=== PATIENT | female | born 1990 | race Caucasian/White ===

== ENCOUNTER → 2020-07-17 08:16 | Outpatient (BNVA) | payer OTHER, SELFPAY | PROVIDERS: PCP Internal Medicine; Visit Provider Surgery ==

== ENCOUNTER → 2020-08-29 10:36 | Outpatient (BNVA) | payer OTHER, SELFPAY | PROVIDERS: PCP Internal Medicine; Visit Provider Physician Assistant ==

== ENCOUNTER → 2020-09-01 08:16 | Outpatient (BNVA) | payer OTHER, SELFPAY | PROVIDERS: PCP Internal Medicine; Visit Provider Surgery ==

== ENCOUNTER → 2020-10-03 08:19 | Outpatient (BNVA) | payer OTHER, SELFPAY | PROVIDERS: PCP Internal Medicine; Visit Provider Dietitian, Registered | DX: E66.01 Morbid (severe) obesity due to excess calories (principal); Z68.44 Body mass index [BMI] 60.0-69.9, adult | CPT/HCPCS: 97802 ==

== ENCOUNTER → 2020-11-10 08:11 | Outpatient (BNVA) | payer OTHER, SELFPAY | PROVIDERS: PCP Internal Medicine; Visit Provider Dietitian, Registered | DX: E66.01 Morbid (severe) obesity due to excess calories (principal); Z68.44 Body mass index [BMI] 60.0-69.9, adult | CPT/HCPCS: 97803 ==

== ENCOUNTER → 2020-12-02 09:13 | Outpatient (BNVA) | payer OTHER, SELFPAY | PROVIDERS: PCP Internal Medicine; Referring Provider Internal Medicine; Visit Provider Surgery | DX: E66.01 Morbid (severe) obesity due to excess calories (principal); Z68.45 Body mass index [BMI] 70 or greater, adult | CPT/HCPCS: 99212 ==

== ENCOUNTER 2021-04-19 18:06 | Emergency (ER) | payer OTHER, SELFPAY ==
--- NOTE | ~2021-04-19 | XR_ITS ---
EXAMINATION: XR CHEST CLINICAL INFORMATION: Shortness of breath. COMPARISON: None TECHNIQUE: AP view of the chest was obtained. FINDINGS: No significant abnormality is noted involving the heart, lungs, mediastinum, bony thorax or soft tissues. XR/XR chest 1V IMPRESSION: Unremarkable examination.
[2021-04-19 20:38] VITALS: BP 146/97; PULSE 111; RESP 22; TEMP 36.8; O2SAT 98; BMI 62.3
[2021-04-19 22:31] LABS: COVID-19 Test Negative (Negative)
--- NOTE | 2021-04-19 22:32 | ED.URI ---
HPI - URI/Sore Throat General Chief Complaint: Dyspnea Stated Complaint: diff breathing Time Seen by Provider: 04/19/21 22:29 Source: patient Mode of arrival: ambulatory Limitations: no limitations History of Present Illness HPI Narrative: Patient works as a teacher , coughing for last 3 weeks been tested for COVID negative for last 2 days complaining of pain in the left chest after coughing a lot headache body aches sore throat denies nausea/ vomiting or diarrhea Related Data Home Medications Medication Instructions Recorded Confirmed clonazepam 0.5 mg tablet 0.25 mg PO BID PRN 08/29/20 12/02/20 duloxetine 60 mg capsule,delayed 60 mg PO DAILY 08/29/20 12/02/20 release lisdexamfetamine 50 mg capsule 50 mg PO QAM 08/29/20 12/02/20 ibuprofen 800 mg tablet 800 mg PO TID PRN 12/02/20 12/02/20 lisdexamfetamine 20 mg capsule 20 mg PO QPM cap 12/02/20 12/02/20 Previous Rx's Medication Instructions Recorded albuterol sulfate 90 mcg/actuation 2 puff INHALATION Q4-6H PRN #8.5 g 04/19/21 aerosol inhaler (ProAir HFA) azithromycin 250 mg tablet 250 mg PO DAILY 4 Days #4 tab 04/19/21 (Zithromax Z-Gwyn) benzonatate 200 mg capsule 200 mg PO TID PRN #30 cap 04/19/21 ibuprofen 600 mg tablet 600 mg PO Q6H PRN #20 tab 04/19/21 prednisone 20 mg tablet 40 mg PO DAILY #10 tab 04/19/21 Allergies Allergy/AdvReac Type Severity Reaction Status Date / Time ceftriaxone [From Rocephin] Allergy Severe Anaphylaxis Verified 04/19/21 20:38 tramadol Allergy Severe Anaphylaxis Verified 04/19/21 20:38 Review of Systems Review of Systems: Yes all other systems are reviewed and are negative PMFSH Past Medical History Medical History ADHD Insomnia Morbid obesity Nephrolithiasis PCOS (polycystic ovarian syndrome) PTSD (post-traumatic stress disorder) Surgical History History of ankle surgery History of tonsillectomy and adenoidectomy Hx of cholecystectomy Hx of wisdom tooth extraction Status post placement of bone anchored hearing aid (BAHA) Family History Family History Mother Hypothyroidism Back pain Father No problems noted. Sister No problems noted. Sister No problems noted. Sister No problems noted. Brother No problems noted. Social History Social History Alcohol intake: former Patient Tobacco Use Status: Never used Tobacco Advance Directives: No Patient : No Physical Exam Vital Signs: Vital Signs: Last Vital Signs Temp 98.2 F 04/19/21 20:38 Pulse 111 H 04/19/21 23:00 Resp 22 H 04/19/21 20:38 BP 146/97 H 04/19/21 20:38 Pulse Ox 98 04/19/21 20:38 Body Mass Index 62.3 Appearance: Alert. Oriented X3. No acute distress. Eyes: No pallor or icterus ENT: Pharynx normal. Oral Mucosa moist Neck: Normal inspection. Neck supple. CVS: Normal heart rate and rhythm. Pulses normal. Respiratory: No respiratory distress. Equal air entry bilateral, Abdomen: Soft and nontender. Bowel sounds are present, no mass palpable, Skin: Skin warm and dry. Normal skin color. Normal skin turgor. Extremities: No lower extremity edema. No calf tenderness Neuro: Oriented X 3 MDM - URI/Sore Throat Lab Data Attestation: I reviewed the patient's lab results. Labs: Lab Results 04/19/21 Range/Units 22:08 COVID-19 (TRISTA) Negative (Negative) COVID-19 Clin Com See Note Discharge Plan Discharge Clinical Impression: Acute bronchitis Patient Disposition: Home, Self-Care Instructions: Acute Bronchitis (ED) Additional Instructions: Take medication as advised your chest x-ray and COVID test is negative Prescriptions: New prednisone 20 mg tablet 40 mg PO DAILY Qty: 10 RF: 0 albuterol sulfate [ProAir HFA] 90 mcg/actuation HFA aerosol inhaler 2 puff inhalation Q4-6H PRN (Reason: shortness of breath or wheezing) Qty: 8.5 RF: 0 azithromycin [Zithromax Z-Gwyn] 250 mg tablet 250 mg PO DAILY 4 Days Qty: 4 RF: 0 benzonatate 200 mg capsule 200 mg PO TID PRN (Reason: cough) Qty: 30 RF: 0 ibuprofen 600 mg tablet 600 mg PO Q6H PRN (Reason: pain) Qty: 20 RF: 0 No Action Vyvanse 50 mg capsule 50 mg PO QAM RF: 0 duloxetine 60 mg capsule,delayed release(DR/EC) 60 mg PO DAILY RF: 0 clonazepam 0.5 mg tablet 0.25 mg PO BID PRNRF: 0 ibuprofen 800 mg tablet 800 mg PO TID PRNRF: 0 lisdexamfetamine 20 mg capsule 20 mg PO QPM RF: 0 Stand Alone Forms: Work/School Release Interventions: ED Discharge Assessment Last Done: 04/19/21 23:38 Discharge Date/Time: 04/19/21 23:39
[2021-04-19] MEDS: Azithromycin 500 MG TABLET PO (22:44)
[2021-04-19] MEDS: Benzonatate 100 MG CAPSULE 200 MG PO (22:44)
[2021-04-19] MEDS: predniSONE 20 MG TABLET 40 MG PO (22:44)
[2021-04-19] MEDS: Albuterol Sulfate 90 MCG 8 GM INHALER 4 PUFF INHALE (22:57)
[2021-04-19 23:00] VITALS: PULSE 111; O2SAT 98
== END 2021-04-19 23:39 | disposition home or self-care (01) ==
PROVIDERS: Emergency Provider Internal Medicine; PCP Internal Medicine
DX: J20.9 Acute bronchitis, unspecified (principal); Z20.822 Contact with and (suspected) exposure to COVID-19; R51.9 Headache, unspecified; M79.10 Myalgia, unspecified site
CPT/HCPCS: 36415; 71045; 87635; 94640; 94664; 99283; 99284

== ENCOUNTER 2021-07-09 23:55 | Emergency (ER) | payer OTHER, SELFPAY ==
--- NOTE | ~2021-07-09 | CT_ITS ---
EXAMINATION: CT ABDOMEN AND PELVIS WITHOUT CONTRAST CLINICAL INFORMATION: Left flank pain COMPARISON: None TECHNIQUE: Multidetector volumetric imaging was performed from the superior aspect of the liver through the pubic symphysis. Sagittal and coronal reformatted images were obtained on the technologist's workstation. This CT examination was performed using dose optimization techniques as appropriate, variously including the following: *Automated exposure control *Adjustment of mA and/or kV according to patient size (this includes techniques or standardized protocols for targeted exams where dose is matched to indication/reason for exam; i.e. extremities or head) *Use of iterative reconstruction technique DLP: 1679 mGy-cm FINDINGS: LUNG BASES: The visualized lung bases are unremarkable. LIVER, GALLBLADDER, AND BILIARY TREE: The liver is normal in size, shape, and attenuation. No focal hepatic lesion or biliary ductal dilatation is present. Cholecystectomy. PANCREAS: Unremarkable. SPLEEN: Unremarkable. ADRENAL GLANDS: Unremarkable. KIDNEYS AND URETERS: There are 2 small calculi in the interpolar region of the left kidney each measuring approximately 2 mm. No hydronephrosis or perinephric abnormality. Ureters normal in course and caliber. Questionable punctate calculus within the distal left ureter at the UVJ. BLADDER: There is a punctate calculus within the bladder, just lateral to the left ureterovesical junction, possibly recently passed stone. GASTROINTESTINAL TRACT: The small and large bowel are unremarkable. The appendix is unremarkable. ABDOMINAL WALL: No significant hernia is appreciated. LYMPH NODES: Normal. VASCULAR: Unremarkable. PELVIC VISCERA: Uterus and adnexa unremarkable. OSSEOUS STRUCTURES: Unremarkable. CT/CT abdomen pelvis wo con IMPRESSION: * Punctate calculus within the left lateral bladder, possibly recently passed stone. * Questionable punctate calcification within the distal left ureter at the ureterovesical junction, versus quantum mottle artifact. * There are 2 small nonobstructive calculi within the left kidney. * No hydronephrosis.
[2021-07-10 00:37] VITALS: BP 138/112; PULSE 120; RESP 20; TEMP 36.4; O2SAT 99; BMI 66.1
[2021-07-10] MEDS: Ketorolac Tromethamine 15 MG/ML VIAL IM (01:19)
[2021-07-10] MEDS: Acetaminophen 325 MG TABLET 975 MG PO (01:19)
[2021-07-10] MEDS: Ondansetron ODT 4 MG TAB.RAPDIS TRANSLINGU (01:20)
[2021-07-10 01:54] VITALS: BP 130/76; PULSE 108; RESP 18; TEMP 36.4; O2SAT 99
--- NOTE | 2021-07-10 02:11 | ED_ITS ---
HPI - Female Genitourinary General Chief complaint: Urogenital-Female Stated complaint: nausea, kidney stones? Time Seen by Provider: 07/10/21 01:05 Source: patient Mode of arrival: ambulatory History of Present Illness HPI Narrative: 31-year-old female with history of renal colic presents with left flank pain radiating into the anterior aspect of the left abdomen and reports painful urination with noted blood tinge to it. Patient also reports associated nausea but no vomiting and denies any fever, chills. Related Data Home Medications Medication Instructions Recorded Confirmed clonazepam 0.5 mg tablet 0.25 mg PO BID PRN 08/29/20 12/02/20 duloxetine 60 mg capsule,delayed 60 mg PO DAILY 08/29/20 12/02/20 release lisdexamfetamine 50 mg capsule 50 mg PO QAM 08/29/20 12/02/20 ibuprofen 800 mg tablet 800 mg PO TID PRN 12/02/20 12/02/20 lisdexamfetamine 20 mg capsule 20 mg PO QPM cap 12/02/20 12/02/20 Previous Rx's Medication Instructions Recorded albuterol sulfate 90 mcg/actuation 2 puff INHALATION Q4-6H PRN #8.5 g 04/19/21 aerosol inhaler (ProAir HFA) azithromycin 250 mg tablet 250 mg PO DAILY 4 Days #4 tab 04/19/21 (Zithromax Z-Gwyn) benzonatate 200 mg capsule 200 mg PO TID PRN #30 cap 04/19/21 ibuprofen 600 mg tablet 600 mg PO Q6H PRN #20 tab 04/19/21 prednisone 20 mg tablet 40 mg PO DAILY #10 tab 04/19/21 ketorolac 10 mg tablet 10 mg PO Q6H PRN 5 Days #20 tab 07/10/21 ondansetron 4 mg disintegrating 4 mg PO Q6H PRN #10 tab 07/10/21 tablet tamsulosin 0.4 mg capsule (Flomax) 0.4 mg PO BEDTIME #4 cap 07/10/21 Allergies Allergy/AdvReac Type Severity Reaction Status Date / Time ceftriaxone [From Rocephin] Allergy Severe Anaphylaxis Verified 04/19/21 20:38 tramadol Allergy Severe Anaphylaxis Verified 04/19/21 20:38 Review of Systems Review of Systems: Pertinent positives and negatives as stated in HPI 10 point review of systems is otherwise negative. [facility] Past Medical History Source: nursing notes reviewed Medical History ADHD Insomnia Morbid obesity Nephrolithiasis PCOS (polycystic ovarian syndrome) PTSD (post-traumatic stress disorder) Surgical History History of ankle surgery History of tonsillectomy and adenoidectomy Hx of cholecystectomy Hx of wisdom tooth extraction Status post placement of bone anchored hearing aid (BAHA) Family History Family History Mother Hypothyroidism Back pain Father No problems noted. Sister No problems noted. Sister No problems noted. Sister No problems noted. Brother No problems noted. Social History Social History Alcohol intake: former Patient Tobacco Use Status: Never used Tobacco Advance Directives: No Advance Directives Information Provided: Yes Patient : No Physical Exam Vital Signs: Vital Signs: Last Vital Signs Temp 98.5 F 07/10/21 04:00 Pulse 65 07/10/21 04:00 Resp 18 07/10/21 05:28 BP 130/78 07/10/21 04:00 Pulse Ox 99 07/10/21 01:54 BMI result Body Mass Index 66.1 VITAL SIGNS: Reviewed. GENERAL: Well developed, well nourished, in no acute distress. HEAD: Normocephalic/atraumatic EYES: PERRLA, EOMI OROPHARYNX: no oral lesions noted, posterior pharynx clear LUNGS: Normal breath sounds. No adventitious sounds or accessory muscle use. SpO2<99> CARDIOVASCULAR: Regular rate and rhythm without noted murmurs ABDOMEN: Morbid obesity, exam limited by body habitus, Soft, non-tender, non- distended with bowel sounds. SKIN: Inspection of the skin reveals no rashes NEUROLOGIC: Alert and oriented x 4. Strength and sensation to light touch were grossly intact x 4. Course Course Course Narrative: 31-year-old female with history and clinical presentation consistent with renal colic and doubt gastritis/pancreatitis/diverticulitis. Patient provided with IV hydration, pain medication and antiemetics. Review of urinalysis and CT scan consistent with renal colic. On re-evaluation patient reports improvement in her pain and is noted to tolerate oral intake and is otherwise discharged with a referral to see Urology. MDM - Female Genitourinary Lab Data Labs: Lab Results 07/10/21 07/10/21 Range/Units 02:07 02:07 Urine Color YELLOW Urine Appearance TURBID Urine pH 6.0 (5.0-8.0) Ur Specific [employer] >= 1.030 H (1.005-1.025) Urine Protein TRACE (NEG-TRACE) MG/DL Urine Glucose (UA) NEG (NEG) MG/DL Urine Ketones NEG (NEG) MG/DL Urine Blood 3+ H (NEG) Urine Nitrite NEG (NEG) Ur Leukocyte Esterase NEG (NEG) Urine RBC 50-75 H (0) /HPF Urine WBC 0 (0-4) /HPF Ur Squamous Epith Cells TRACE /LPF Urine Bacteria 1+ /LPF Urine Mucus 1+ /LPF Urine Test NEGATIVE (NEGATIVE) Discharge Plan Discharge Clinical Impression: Morbid obesity due to excess calories, Renal colic, Ureterolithiasis Patient Disposition: Home, Self-Care Instructions: Renal Colic (ED), Ureteral Stones (ED) Additional Instructions: 1. Resume home medications as prescribed. 2. Increase fluid hydration, especially with water. You have been prescribed antinausea medication that you should take as directed. 3. Recommend [id number] Tylenol/ibuprofen as needed for pain control. 4. Please follow-up with Urology, a referral has been provided to you below. Return to the ER for any worsening symptoms. Prescriptions: New ondansetron 4 mg tablet,disintegrating 4 mg PO Q6H PRN (Reason: nausea and vomiting) Qty: 10 0RF tamsulosin [Flomax] 0.4 mg capsule 0.4 mg PO BEDTIME Qty: 4 0RF ketorolac 10 mg tablet 10 mg PO Q6H PRN (Reason: pain) 5 Days Qty: 20 0RF No Action prednisone 20 mg tablet 40 mg PO DAILY Qty: 10 0RF albuterol sulfate [ProAir HFA] 90 mcg/actuation HFA aerosol inhaler 2 puff inhalation Q4-6H PRN (Reason: shortness of breath or wheezing) Qty: 8.5 0RF azithromycin [Zithromax Z-Gwyn] 250 mg tablet 250 mg PO DAILY 4 Days Qty: 4 0RF Rx Instructions: start on day 2 of therapy benzonatate 200 mg capsule 200 mg PO TID PRN (Reason: cough) Qty: 30 0RF ibuprofen 600 mg tablet 600 mg PO Q6H PRN (Reason: pain) Qty: 20 0RF Vyvanse 50 mg capsule 50 mg PO QAM 0RF duloxetine 60 mg capsule,delayed release(DR/EC) 60 mg PO DAILY 0RF clonazepam 0.5 mg tablet 0.25 mg PO BID PRN0RF ibuprofen 800 mg tablet 800 mg PO TID PRN0RF lisdexamfetamine 20 mg capsule 20 mg PO QPM 0RF Referrals: Stephen Rogers MD [Physician] - 2 days Stand Alone Forms: Work/School Release
[2021-07-10 02:14] LABS: Appearance Urine TURBID; Color Urine YELLOW; Glucose Urine UA NEG (NEG); Leukocyte Esterase Urine NEG (NEG); Nitrite Urine NEG (NEG); Specific Gravity - Urine >= 1.030 (1.005-1.025); UACC Culture Trigger NO; Urine Blood 3+ (NEG); Urine Ketones NEG (NEG); Urine Protein TRACE MG/DL (NEG-TRACE)
[2021-07-10 02:15] LABS: UPreg QC Valid YES; Urine Pregnancy NEGATIVE (NEGATIVE)
[2021-07-10 02:24] LABS: Bacteria Urine 1+ /LPF; Mucus Urine 1+ /LPF; RBC Urine 50-75 /HPF (0); Squamous Epithelial Cell Urine TRACE /LPF; WBC Urine 0 /HPF (0-4)
[2021-07-10 03:11] VITALS: RESP 16
[2021-07-10] MEDS: fentaNYL citrate/PF 100 MCG/2 ML VIAL 25 MCG IVPUSH ×3 (03:11→05:28)
[2021-07-10] MEDS: 0.9 % Sodium Chloride 1,000 ML 999 ML IV (03:13)
[2021-07-10 04:00] VITALS: BP 130/78; PULSE 65; RESP 18; TEMP 36.9
[2021-07-10] MEDS: ondansetron HCL 4 MG/2 ML VIAL IVPUSH (04:08)
[2021-07-10 04:10] VITALS: RESP 20
--- NOTE | 2021-07-10 04:57 | PC.NURSE ---
PT required multiple attempts for IV access. One point of access, that was initially viable, had blown in the process or administering IV pain medication. PT did not receive the intended effects of the meds and thus required more pain meds after IV access had once again been established.
[2021-07-10 05:28] VITALS: RESP 18
[2021-07-10] MEDS: Ketorolac Tromethamine 30 MG/ML VIAL 15 MG IVPUSH (05:29)
== END 2021-07-10 06:10 | disposition home or self-care (01) ==
PROVIDERS: Emergency Provider Student in an Organized Health Care Education/Training Program
DX: N23 Unspecified renal colic (principal); N20.2 Calculus of kidney with calculus of ureter; E66.01 Morbid (severe) obesity due to excess calories; Z68.45 Body mass index [BMI] 70 or greater, adult
CPT/HCPCS: 74176; 81001; 81025; 96361; 96372; 96374; 96375; 96376; 99284; J1885; J2405; J3010

== ENCOUNTER 2021-08-22 21:22 | Emergency (ER) | payer OTHER, SELFPAY ==
--- NOTE | ~2021-08-22 | CT_ITS ---
EXAMINATION: CT ANGIOGRAM OF THE CHEST WITH AND WITHOUT CONTRAST (CT PULMONARY ANGIOGRAM FOR PE) CLINICAL INFORMATION: Reason for Exam Shortness of breath, tachycardia, COVID positive COMPARISON: None TECHNIQUE: Prior to contrast administration, noncontrast localization images were obtained. Subsequently, multidetector volumetric imaging was performed from the thoracic inlet to below the diaphragms following the administration of 100 mL Omnipaque 350 intravenous contrast. No contrast reaction reported Sagittal, coronal, and MIP oblique sagittal reformatted images were obtained on the CT workstation, uploaded to PACS, and reviewed. This CT examination was performed using dose optimization techniques as appropriate, variously including the following: *Automated exposure control *Adjustment of mA and/or kV according to patient size (this includes techniques or standardized protocols for targeted exams where dose is matched to indication/reason for exam; i.e. extremities or head) *Use of iterative reconstruction technique Total exam dose-length product 526 mGy-cm FINDINGS: QUALITY OF STUDY/CONTRAST BOLUS: Satisfactory. PULMONARY ARTERIES: No central or segmental pulmonary emboli. THORACIC AORTA: No aneurysm or dissection. LUNG: No focal consolidation, nodules or masses. PLEURA: No pleural effusion or pneumothorax. MEDIASTINUM: Normal heart size. No pericardial effusion. No hilar or mediastinal lymphadenopathy. No evidence of septal bowing or right heart strain. CHEST WALL/AXILLA: No axillary or internal mammary lymphadenopathy. OSSEOUS STRUCTURES: No acute or suspicious osseous abnormality. UPPER ABDOMEN: Cholecystectomy CT/CT angio chest PE protocol IMPRESSION: No pulmonary embolism. No acute pulmonary parenchymal abnormalities. VTE: negative
--- NOTE | ~2021-08-22 | XR_ITS ---
EXAMINATION: XR CHEST CLINICAL INFORMATION: Shortness of breath COMPARISON: 04/19/2021 TECHNIQUE: Frontal view of the chest was obtained. FINDINGS: Limited from body habitus and technique. No obvious finding. No failure or infiltrate is seen. There is no effusion. The cardiac silhouette is within normal limits. XR/XR chest 1V IMPRESSION: No acute finding.
[2021-08-22 21:31] VITALS: BP 107/69; PULSE 110; RESP 22; TEMP 36.4; O2SAT 98; BMI 66.1
--- NOTE | 2021-08-22 21:48 | ECG_ITS ---
Test Reason : CHEST PAIN Blood Pressure : / mmHG Vent. Rate : 098 BPM Atrial Rate : 098 BPM P-R Int : 128 ms QRS Dur : 084 ms QT Int : 354 ms P-R-T Axes : 032 048 -05 degrees QTc Int : 451 ms Normal sinus rhythm Normal ECG No previous ECGs available Referred By: Generic ED Physician Electronically Signed By:ROBERTO PRIEST
--- NOTE | 2021-08-22 22:03 | ED.CHESTPAIN ---
HPI - Chest Pain General Chief Complaint: Chest Pain Stated Complaint: COVID + Having severe chest pain/sob Source: patient Mode of arrival: ambulatory Limitations: no limitations History of Present Illness HPI narrative: 31-year-old female presents with positive COVID test on 08/11/2021, has worsening shortness of breath, cough, and pain on inspiration. States the pain starts substernally and radiates to the left side of her chest. She has increased shortness of breath, shortness of breath on inspiration, and feels palpitations. MD complaint: chest pain Pertinent past history: other (Positive COVID) Onset (ago): day(s) Timing of current episode: constant Prior episodes: No Pain location: substernal and left chest Pain radiation: none Severity: moderate Quality: tightness Relieving factors: nothing Exacerbating factors: exertion, movement and other (Coughing) Context: recent illness Associated symptoms: cough Treatment prior to arrival: none Risk Factors Coronary artery disease risk factors: none Thoracic aortic dissection risk factors: none Related Data On Oral Contraceptives: No Home Medications Medication Instructions Recorded Confirmed clonazepam 0.5 mg tablet 0.25 mg PO BID PRN 08/29/20 12/02/20 duloxetine 60 mg capsule,delayed 60 mg PO DAILY 08/29/20 12/02/20 release lisdexamfetamine 50 mg capsule 50 mg PO QAM 08/29/20 12/02/20 ibuprofen 800 mg tablet 800 mg PO TID PRN 12/02/20 12/02/20 lisdexamfetamine 20 mg capsule 20 mg PO QPM cap 12/02/20 12/02/20 Previous Rx's Medication Instructions Recorded albuterol sulfate 90 mcg/actuation 2 puff INHALATION Q4-6H PRN #8.5 g 04/19/21 aerosol inhaler (ProAir HFA) azithromycin 250 mg tablet 250 mg PO DAILY 4 Days #4 tab 04/19/21 (Zithromax Z-Gwyn) benzonatate 200 mg capsule 200 mg PO TID PRN #30 cap 04/19/21 ibuprofen 600 mg tablet 600 mg PO Q6H PRN #20 tab 04/19/21 prednisone 20 mg tablet 40 mg PO DAILY #10 tab 04/19/21 ketorolac 10 mg tablet 10 mg PO Q6H PRN 5 Days #20 tab 07/10/21 ondansetron 4 mg disintegrating 4 mg PO Q6H PRN #10 tab 07/10/21 tablet tamsulosin 0.4 mg capsule (Flomax) 0.4 mg PO BEDTIME #4 cap 07/10/21 codeine 10 mg-guaifenesin 100 mg/5 10 ml PO Q4-6H PRN #120 ml 08/23/21 mL oral liquid (Guaiatussin AC) prednisone 20 mg tablet 60 mg PO DAILY 5 Days #15 tab 08/23/21 Allergies Allergy/AdvReac Type Severity Reaction Status Date / Time ceftriaxone [From Rocephin] Allergy Severe Anaphylaxis Verified 04/19/21 20:38 tramadol Allergy Severe Anaphylaxis Verified 04/19/21 20:38 Review of Systems Review of Systems: Constitutional: No Fever, no Chills, positive fatigue, positive Malaise ENT/Mouth: positive sore throat, positive runny nose Eyes: No Discharge Cardiovascular: Positive Chest Pain, PA's SOB Respiratory: Positive Cough, No Sputum, No Wheezing, No Smoke Exposure, No Dyspnea Gastrointestinal: No Nausea, No Vomiting, No Diarrhea Genitourinary: no irregular bleeding, No Dysuria, No Urinary Frequency, No Hematuria, No Urinary Incontinence, No Urgency, No Flank Pain, Musculoskeletal: positive Myalgia Skin: No rash Neuro: Positive Headache Yes all other systems are reviewed and are negative [facility] Past Medical History Attestation statement: The following information was validated with the patient. Source: old records reviewed Medical History ADHD Insomnia Morbid obesity Nephrolithiasis PCOS (polycystic ovarian syndrome) PTSD (post-traumatic stress disorder) Surgical History History of ankle surgery History of tonsillectomy and adenoidectomy Hx of cholecystectomy Hx of wisdom tooth extraction Status post placement of bone anchored hearing aid (BAHA) Family History Family History Mother Hypothyroidism Back pain Father No problems noted. Sister No problems noted. Sister No problems noted. Sister No problems noted. Brother No problems noted. Social History Social History Alcohol intake: former Patient Tobacco Use Status: Never used Tobacco Advance Directives: No Advance Directives Information Provided: No Patient : No Physical Exam Vital Signs: Vital Signs: Last Vital Signs Temp 97.5 F 08/22/21 21:31 Pulse 140 H 08/23/21 01:58 Resp 18 08/23/21 00:49 BP 122/96 H 08/23/21 00:46 Pulse Ox 88 L 08/23/21 01:58 BMI result Body Mass Index 66.1 Appearance: Alert. Oriented X3. Moderate distress. Eyes: Pupils equal, round and reactive to light. Sclera nonicteric. ENT: Pharynx normal. Neck: Normal inspection. Neck supple. CVS: Tachycardic heart rate and rhythm. Pulses normal. Chest wall tenderness to palpation greater on the left than the right. Respiratory: Mild respiratory distress. Expiratory wheezing throughout. Abdomen: Soft and nontender. Obese. Skin: Skin warm and dry. Normal skin color. Normal skin turgor. Extremities: No lower extremity edema. Moves all extremities against resistance. Neuro: No motor deficit. No sensory deficit. Gait well-balanced well coordinated. Cranial nerves 2-12 intact. Course Course Course Narrative: 31-year-old female COVID positive on 08/11/2021 presents with worsening shortness of breath, chest pain, pain on inspiration, and tachycardia. Will order labs, CT a to rule out PE. Patient is tachycardic with shortness of breath, pain on inspiration. Wells PE score 4.5. 00:29 lab values consistent with COVID-19. Elevated CRP, and LDH. Lactic acid 1.1 02:06 CTA is negative for PE or pneumonia. Will discharge home with supportive measures. Repeat pulse oximetry on exertion is 92% on room air. Patient does not meet criteria for admission. I did discuss this case with the hospitalist who agrees with this plan to discharge to home. MDM - Chest Pain Differential Diagnosis Differential diagnosis: Likely fracture of rib, atypical chest pain, st elevation myocardial infarction, costochondritis and chest pain Differential diagnosis: PE, pneumonia Medical Records Data Attestation: I reviewed the patient's medical records. Lab Data Attestation: I reviewed the patient's lab results. Result diagrams: 08/22/21 23:06 08/22/21 23:06 Labs: Lab Results 04/02/22 04/02/22 04/02/22 Range/Units 23:06 23:06 23:06 WBC 12.4 H (4.8-10.8) X10*3/uL RBC 5.01 (4.20-5.50) X10*6/uL Hgb 13.6 (12.0-16.0) g/dl Hct 41.8 (37.0-47.0) % MCV 83.4 (80.0-98.0) fL MCH 27.1 (27.0-33.0) pg MCHC 32.5 (31.0-35.0) g/dl RDW 13.1 (11.0-16.0) % Plt Count 347 (160-400) X10*3/uL MPV 9.1 L (9.4-12.3) fL Immature Gran % (Auto) 0.6 H (0.0-0.4) % Neut % (Auto) 56.7 (45-73) % Lymph % (Auto) 34.3 (20-40) % [place] % (Auto) 5.7 (2-11) % Eos % (Auto) 2.1 (0-4) % Baso % (Auto) 0.6 (0-2) % Lymph # (Auto) 4.2 (1.2-4.9) X10*3/uL [place] # (Auto) 0.7 (0.1-1.2) X10*3/uL Eos # (Auto) 0.3 (0.0-0.4) X10*3/uL Baso # (Auto) 0.1 (0.0-0.2) X10*3/uL Abs Immat Gran (auto) 0.08 H (0.00-0.03) X10*3/uL Absolute Neuts (auto) 7.0 (2.0-8.3) x10*3/uL Absolute Nucleated RBC 0.000 (0.0-0.012) X10*3/uL Nucleated RBC % (auto) 0.0 (0.0-0.2) /100WBC Sodium 140 (135-145) mmol/L Potassium 4.4 (3.3-5.1) mmol/L Chloride 106 (96-108) mmol/L Carbon Dioxide 27 (22-29) mmol/L Anion Gap 11 L (12-20) BUN 10 (9-16) mg/dL Creatinine 0.77 (0.5-1.4) mg/dL Estim Creat Clear Calc 155.5 Estimated GFR > 60 Random Glucose 93 (60-115) mg/dL Lactic Acid (0.5-2.0) mmol/L Calcium 9.2 (8.4-10.2) mg/dL Magnesium (1.6-2.6) mg/dL Ferritin (10-122) ng/mL Lactate Dehydrogenase (122-220) U/L Troponin I High Sens < 3.5 (<3.5-17.0) ng/L C-Reactive Protein (< or = 0.50) mg/dL B-Natriuretic Peptide 12 (<100) pg/mL Procalcitonin ng/mL 08/22/21 08/22/21 08/22/21 Range/Units 23:06 23:06 23:07 WBC (4.8-10.8) X10*3/uL RBC (4.20-5.50) X10*6/uL Hgb (12.0-16.0) g/dl Hct (37.0-47.0) % MCV (80.0-98.0) fL MCH (27.0-33.0) pg MCHC (31.0-35.0) g/dl RDW (11.0-16.0) % Plt Count (160-400) X10*3/uL MPV (9.4-12.3) fL Immature Gran % (Auto) (0.0-0.4) % Neut % (Auto) (45-73) % Lymph % (Auto) (20-40) % [place] % (Auto) (2-11) % Eos % (Auto) (0-4) % Baso % (Auto) (0-2) % Lymph # (Auto) (1.2-4.9) X10*3/uL [place] # (Auto) (0.1-1.2) X10*3/uL Eos # (Auto) (0.0-0.4) X10*3/uL Baso # (Auto) (0.0-0.2) X10*3/uL Abs Immat Gran (auto) (0.00-0.03) X10*3/uL Absolute Neuts (auto) (2.0-8.3) x10*3/uL Absolute Nucleated RBC (0.0-0.012) X10*3/uL Nucleated RBC % (auto) (0.0-0.2) /100WBC Sodium (135-145) mmol/L Potassium (3.3-5.1) mmol/L Chloride (96-108) mmol/L Carbon Dioxide (22-29) mmol/L Anion Gap (12-20) BUN (9-16) mg/dL Creatinine (0.5-1.4) mg/dL Estim Creat Clear Calc Estimated GFR Random Glucose (60-115) mg/dL Lactic Acid 1.1 (0.5-2.0) mmol/L Calcium (8.4-10.2) mg/dL Magnesium 2.1 (1.6-2.6) mg/dL Ferritin 113 (10-122) ng/mL Lactate Dehydrogenase 303 H (122-220) U/L Troponin I High Sens (<3.5-17.0) ng/L C-Reactive Protein 2.33 H (< or = 0.50) mg/dL B-Natriuretic Peptide (<100) pg/mL Procalcitonin 0.03 ng/mL Imaging Data Chest x-ray: Attestation: I personally reviewed and interpreted this imaging study as follows: Radiologist's impression: EXAMINATION: XR CHEST CLINICAL INFORMATION: Shortness of breath COMPARISON: 04/19/2021 TECHNIQUE: Frontal view of the chest was obtained. FINDINGS: Limited from body habitus and technique. No obvious finding. No failure or infiltrate is seen. There is no effusion. The cardiac silhouette is within normal limits. XR/XR chest 1V IMPRESSION: No acute finding.? CTA PE: Attestation: I personally reviewed and interpreted this imaging study as follows: Radiologist's impression: EXAMINATION: CT ANGIOGRAM OF THE CHEST WITH AND WITHOUT CONTRAST (CT PULMONARY ANGIOGRAM FOR PE) CLINICAL INFORMATION: Reason for Exam Shortness of breath, tachycardia, COVID positive COMPARISON: None? TECHNIQUE: Prior to contrast administration, noncontrast localization images were obtained. ? Subsequently, multidetector volumetric imaging was performed from the thoracic inlet to below the diaphragms following the administration of 100 mL Omnipaque 350 intravenous contrast. No contrast reaction reported Sagittal, coronal, and MIP oblique sagittal reformatted images were obtained on the CT workstation, uploaded to PACS, and reviewed. This CT examination was performed using dose optimization techniques as appropriate, variously including the following: *Automated exposure control *Adjustment of mA and/or kV according to patient size (this includes techniques or standardized protocols for targeted exams where dose is matched to indication/reason for exam; i.e. extremities or head) *Use of iterative reconstruction technique Total exam dose-length product 526 mGy-cm FINDINGS: QUALITY OF STUDY/CONTRAST BOLUS: Satisfactory. PULMONARY ARTERIES: No central or segmental pulmonary emboli.? THORACIC AORTA: No aneurysm or dissection. LUNG: No focal consolidation, nodules or masses. PLEURA: No pleural effusion or pneumothorax. MEDIASTINUM: Normal heart size.? No pericardial effusion.? No hilar or mediastinal lymphadenopathy.? No evidence of septal bowing or right heart strain. CHEST WALL/AXILLA: No axillary or internal mammary lymphadenopathy. OSSEOUS STRUCTURES: No acute or suspicious osseous abnormality.? UPPER ABDOMEN: Cholecystectomy CT/CT angio chest PE protocol IMPRESSION: No pulmonary embolism. No acute pulmonary parenchymal abnormalities. ? VTE: negative ECG Data ECG #1: Attestation: I personally reviewed and interpreted this ECG as follows: ECG interpretation date: 08/22/21 ECG interpretation time: 23:09 Prior ECG tracings: not available for review Interpretation: Vent. rate 98 BPM NJ interval 128 ms QRS duration 84 ms QT/QTc 354/451 ms P-R-T axes 32 48 -5 Normal sinus rhythm Normal ECG No previous ECGs available Scores Wells PE Clinical symptoms of DVT: 3 Heart rate > 100 p/min: 1.5 Score: 4.5 2-tier Risk: likely risk (17-53%) Discharge Plan Discharge Clinical Impression: Atypical chest pain, COVID-19 Patient Disposition: Home, Self-Care Instructions: Covid-19 Viral Syndrome and Novel Coronavirus (ED) Hey/Ath, Noncardiac Chest Pain (ED), Chest Wall Pain (ED) Additional Instructions: You were evaluated for symptoms consistent with COVID-19. Please maintain social isolation per State and Federal guidelines. Your CT angio for PE is negative for blood clots in the lungs. Also negative for pneumonia. I prescribed Robitussin AC. This medication is a narcotic and has high risk for addiction and abuse. Do not drive or operate machinery while taking this medication. Please follow the directions for use on the label. Please take prednisone 60 mg daily for the next 5 days. Follow-up with your primary care physician this week. Thank you for choosing this emergency department for evaluation. Please follow-up with primary care physician as needed. Return to the emergency department for any new, concerning, or worsening symptoms. Prescriptions: New prednisone 20 mg tablet 60 mg PO DAILY 5 Days Qty: 15 0RF codeine-guaifenesin [Guaiatussin AC] 10-100 mg/5 mL liquid 10 ml PO Q4-6H PRN (Reason: cough) Qty: 120 0RF No Action ondansetron 4 mg tablet,disintegrating 4 mg PO Q6H PRN (Reason: nausea and vomiting) Qty: 10 0RF tamsulosin [Flomax] 0.4 mg capsule 0.4 mg PO BEDTIME Qty: 4 0RF ketorolac 10 mg tablet 10 mg PO Q6H PRN (Reason: pain) 5 Days Qty: 20 0RF prednisone 20 mg tablet 40 mg PO DAILY Qty: 10 0RF albuterol sulfate [ProAir HFA] 90 mcg/actuation HFA aerosol inhaler 2 puff inhalation Q4-6H PRN (Reason: shortness of breath or wheezing) Qty: 8.5 0RF azithromycin [Zithromax Z-Gwyn] 250 mg tablet 250 mg PO DAILY 4 Days Qty: 4 0RF Rx Instructions: start on day 2 of therapy benzonatate 200 mg capsule 200 mg PO TID PRN (Reason: cough) Qty: 30 0RF ibuprofen 600 mg tablet 600 mg PO Q6H PRN (Reason: pain) Qty: 20 0RF Vyvanse 50 mg capsule 50 mg PO QAM 0RF duloxetine 60 mg capsule,delayed release(DR/EC) 60 mg PO DAILY 0RF clonazepam 0.5 mg tablet 0.25 mg PO BID PRN0RF ibuprofen 800 mg tablet 800 mg PO TID PRN0RF lisdexamfetamine 20 mg capsule 20 mg PO QPM 0RF Stand Alone Forms: Work/School Release
[2021-08-22] MEDS: Albuterol Sulfate 90 MCG 8 GM INHALER 4 PUFF INHALE (22:21)
[2021-08-22 23:14] VITALS: RESP 22
[2021-08-22] MEDS: Morphine Sulfate 4 MG/ML CARTRIDGE IVPUSH (23:14)
[2021-08-22] MEDS: guaiFEN/Codeine SF 200/20/10ML 10 ML LIQUID PO (23:14)
[2021-08-22 23:18] VITALS: BP 116/70; PULSE 108; RESP 22; O2SAT 98
[2021-08-22 23:18] LABS: Basophils Absolute Auto 0.1 X10*3/uL (0.0-0.2); Basophils Percent Auto 0.6 % (0-2); Eosinophils Absolute Auto 0.3 X10*3/uL (0.0-0.4); Eosinophils Percent Auto 2.1 % (0-4); Hematocrit 41.8 % (37.0-47.0); Hemoglobin 13.6 g/dl (12.0-16.0); Imm Gran Abs Auto 0.08 X10*3/uL (0.00-0.03); Imm Gran Pct Auto 0.6 % (0.0-0.4); Lymphocytes Absolute Auto 4.2 X10*3/uL (1.2-4.9); Lymphocytes Percent Auto 34.3 % (20-40); MANUAL DIFF FLAG NO; Mean Corpuscular HGB Conc 32.5 g/dl (31.0-35.0); Mean Corpuscular Hemoglobin 27.1 pg (27.0-33.0); Mean Corpuscular Volume 83.4 fL (80.0-98.0); Mean Platelet Volume 9.1 fL (9.4-12.3); Monocytes Absolute Auto 0.7 X10*3/uL (0.1-1.2); Monocytes Percent Auto 5.7 % (2-11); Neutrophils Percent Auto 56.7 % (45-73); Platelet Count 347 X10*3/uL (160-400); Red Blood Count 5.01 X10*6/uL (4.20-5.50); Red Cell Distribution Width 13.1 % (11.0-16.0); White Blood Count 12.4 X10*3/uL (4.8-10.8)
[2021-08-22 23:27] LABS: Lactic Acid 1.1 mmol/L (0.5-2.0)
[2021-08-22 23:32] LABS: Anion Gap 11 (12-20); Blood Urea Nitrogen 10 mg/dL (9-16); C Reactive Protein 2.33 mg/dL (< or = 0.50); Calcium 9.2 mg/dL (8.4-10.2); Carbon Dioxide 27 mmol/L (22-29); Chloride 106 mmol/L (96-108); Creatinine Clr Calc Pharmacy 155.5; Estimated Glomerular Filt Rate > 60; Glucose Random 93 mg/dL (60-115); Lactate Dehydrogenase 303 U/L (122-220); Magnesium 2.1 mg/dL (1.6-2.6); Potassium 4.4 mmol/L (3.3-5.1); Sodium 140 mmol/L (135-145)
[2021-08-22 23:38] LABS: B Type Natriuretic Peptide 12 pg/mL (<100); Troponin-I High Sensitivity < 3.5 ng/L (<3.5-17.0)
[2021-08-22 23:51] VITALS: BP 146/95; PULSE 108; RESP 20; O2SAT 96
[2021-08-22 23:53] LABS: Ferritin 113 ng/mL (10-122)
[2021-08-23 00:31] LABS: Procalcitonin 0.03 ng/mL
[2021-08-23 00:46] VITALS: BP 122/96
[2021-08-23 00:49] VITALS: RESP 18
[2021-08-23] MEDS: Morphine Sulfate 4 MG/ML CARTRIDGE IVPUSH (00:49)
[2021-08-23] MEDS: Lidocaine HCl Viscous 2 % 15 ML SOLUTION MUCOUS MEM (00:49)
[2021-08-23] MEDS: iohexoL 350 MG/ML 100 ML INFUS..BTL IV (01:16)
--- NOTE | 2021-08-23 01:54 | PC.NURSE ---
pt ambulated in room with nonprod cough. pt demonstarted, moreno, dizziness, holding onto furniture while walking, pt sat dropped to 88% on room air, hr 140, at rest sat improved to 98% on room air hr 108
[2021-08-23 01:58] VITALS: PULSE 140; O2SAT 92
--- NOTE | 2021-08-23 02:35 | PC.NURSE ---
pt sat probe that registered 88% was inaccurate and another probe was used and sat was 92% on room air. vitals adjusted to show this.
[2021-08-23 02:40] VITALS: PULSE 103; O2SAT 98
[2021-08-23 02:54] LABS: Influenza A PCR NEGATIVE (Negative); Influenza B PCR NEGATIVE (Negative); Resp Syncy Virus RNA Qual PCR NEGATIVE (Negative); SARS COV2 PCR INHOUSE POSITIVE (Negative)
== END 2021-08-23 02:47 | disposition home or self-care (01) ==
PROVIDERS: Nurse Practitioner Family; Emergency Provider Emergency Medicine Emergency Medical Services
DX: U07.1 COVID-19 (principal); R07.89 Other chest pain; R06.02 Shortness of breath; R00.0 Tachycardia, unspecified
CPT/HCPCS: 0241U; 36415; 71045; 71275; 80048; 82728; 83605; 83615; 83735; 83880; 84145; 84484; 85025; 86140; 87040; 93005; 96374; 96375; 99284; J2270; Q9967

== ENCOUNTER 2021-10-06 20:47 | Emergency (ER) | payer OTHER, SELFPAY ==
--- NOTE | ~2021-10-06 | XR_ITS ---
EXAMINATION: XR CHEST CLINICAL INFORMATION: Shortness of breath with exertion. COMPARISON: 08/22/2021 chest radiograph. TECHNIQUE: 2 views of the chest were obtained. FINDINGS: No significant abnormality is noted involving the heart, lungs, mediastinum, bony thorax or soft tissues. XR/XR chest 2V IMPRESSION: No acute cardiopulmonary process.
[2021-10-06 22:13] VITALS: BP 151/104; PULSE 90; RESP 18; TEMP 36.6; O2SAT 100; BMI 62.3
[2021-10-06 22:49] LABS: Influenza A Negative (Negative); Influenza B2 Negative (Negative)
[2021-10-06 22:50] LABS: COVID-19 Test Negative (Negative); IDNOW Serial# 16C4AD1C
[2021-10-07 06:15] LABS: Appearance Urine CLEAR; Color Urine YELLOW; Glucose Urine UA NEG (NEG); Leukocyte Esterase Urine NEG (NEG); Nitrite Urine NEG (NEG); Specific Gravity - Urine 1.025 (1.005-1.025); Urine Blood NEG (NEG); Urine Ketones NEG (NEG); Urine Protein NEG (NEG-TRACE)
[2021-10-07 06:24] LABS: UPreg QC Valid YES; Urine Pregnancy NEGATIVE (NEGATIVE)
== END 2021-10-07 07:14 | disposition left against medical advice (07) ==
PROVIDERS: Student in an Organized Health Care Education/Training Program; Emergency Provider Emergency Medicine
DX: R06.02 Shortness of breath (principal); Z20.822 Contact with and (suspected) exposure to COVID-19
CPT/HCPCS: 71046; 81003; 81025; 87502; 87635; 99283

== ENCOUNTER 2022-10-11 04:18 | Inpatient (IN) | payer OTHER, SELFPAY ==
[2022-10-11] VITALS (16 sets, daily range): BP systolic 85–157; BP diastolic 46–91; PULSE 90–123; RESP 16–24; TEMP 36.4–37.3; O2SAT 92–98; BMI 72.9
--- NOTE | ~2022-10-11 | FL_ITS ---
EXAMINATION: XR FLUOROSCOPY WITH IMAGES CLINICAL INFORMATION: Left retrograde. COMPARISON: None available. TECHNIQUE: Fluoroscopy Supervised By: Dr. Stephen Rogers. Fluoroscopy Time: 40.6 seconds. Cumulative Dose: 41.78 mGy. Images: 2. FINDINGS: There are 2 digital images obtained revealing left ureteral stent with its proximal end in the kidney pelvis and distal end in the bladder. FL/FL guidance in OR IMPRESSION: Fluoroscopy was provided to referring physician for left ureteral stent placement.
--- NOTE | ~2022-10-11 | CT_ITS ---
EXAMINATION: CT ABDOMEN AND PELVIS WITHOUT CONTRAST CLINICAL INFORMATION: Left flank pain COMPARISON: 07/10/2021 TECHNIQUE: Multidetector volumetric imaging was performed from the superior aspect of the liver through the pubic symphysis. Sagittal and coronal reformatted images were obtained on the technologist's workstation. This CT examination was performed using dose optimization techniques as appropriate, variously including the following: *Automated exposure control *Adjustment of mA and/or kV according to patient size (this includes techniques or standardized protocols for targeted exams where dose is matched to indication/reason for exam; i.e. extremities or head) *Use of iterative reconstruction technique DLP: 1757 mGy-cm FINDINGS: LUNG BASES: The visualized lung bases are unremarkable. LIVER, GALLBLADDER, AND BILIARY TREE: Liver normal in size, contour and morphology. Diffuse hepatic steatosis. No focal liver lesions. No biliary dilatation. Cholecystectomy. PANCREAS: Unremarkable. SPLEEN: Unremarkable. ADRENAL GLANDS: Unremarkable. KIDNEYS AND URETERS: There is a 5 x 2 mm stone in the distal left ureter in the region of the broad ligament associated mild upstream hydroureteronephrosis and perinephric stranding. There is a 2 mm nonobstructive calculus in the interpolar region of the left kidney. The kidneys are normal in size, shape, and attenuation. BLADDER: Unremarkable. GASTROINTESTINAL TRACT: The small and large bowel are unremarkable. The appendix is unremarkable. ABDOMINAL WALL: No significant hernia is appreciated. LYMPH NODES: Normal. VASCULAR: Unremarkable. PELVIC VISCERA: Uterus and adnexa unremarkable. OSSEOUS STRUCTURES: No acute or suspicious osseous abnormalities. CT/CT abdomen pelvis wo IV con IMPRESSION: * There is a 5 x 2 mm stone in the distal LEFT ureter associated mild upstream hydroureteronephrosis and perinephric stranding. * Nonobstructive 2 mm calculus, left kidney. * Hepatic steatosis.
[2022-10-11 04:44] LABS: Appearance Urine Cloudy; Color Urine Dark Yellow; Glucose Urine UA Negative (Negative); Leukocyte Esterase Urine Moderate (2+) (Negative); Nitrite Urine Positive (Negative); Specific Gravity - Urine >= 1.030 (1.005-1.025); UMIC TRIGGER UACC YES; Urine Blood Small (1+) (Negative); Urine Ketones Negative (Negative); Urine Protein 30 (1+) mg/dL (Neg-Trace)
[2022-10-11 04:49] LABS: Bacteria Urine 4+ (None Seen); Hyaline Casts Urine 0-2 /LPF (0-2); UACC Culture Trigger YES; WBC Urine >50 /HPF (0-5)
--- NOTE | 2022-10-11 05:15 | ED.FEMALEGU ---
HPI - Female Genitourinary General Chief complaint: Urogenital-Female Stated complaint: UTI Time Seen by Provider: 10/11/22 05:08 Source: patient Mode of arrival: ambulatory Limitations: no limitations History of Present Illness HPI Narrative: Patient comes to the emergency room complaining of history of for 2 weeks, subjective fever, left-sided flank pain. Patient has had history of multiple UTIs in the past and kidney stones. Related Data Home Medications Medication Instructions Recorded Confirmed clonazepam 0.5 mg tablet 0.25 mg PO BID PRN 08/29/20 12/02/20 duloxetine 60 mg capsule,delayed 60 mg PO DAILY 08/29/20 12/02/20 release lisdexamfetamine 50 mg capsule 50 mg PO QAM 08/29/20 12/02/20 ibuprofen 800 mg tablet 800 mg PO TID PRN 12/02/20 12/02/20 lisdexamfetamine 20 mg capsule 20 mg PO QPM 12/02/20 12/02/20 Previous Rx's Medication Instructions Recorded albuterol sulfate 90 mcg/actuation 2 puff inhalation Q4-6H PRN 04/19/21 aerosol inhaler (ProAir HFA) shortness of breath or wheezing #8.5 grams azithromycin 250 mg tablet 250 mg PO DAILY 4 days #4 tabs 04/19/21 (Zithromax Z-Gwyn) benzonatate 200 mg capsule 200 mg PO TID PRN cough #30 caps 04/19/21 ibuprofen 600 mg tablet 600 mg PO Q6H PRN pain #20 tabs 04/19/21 prednisone 20 mg tablet 40 mg PO DAILY #10 tabs 04/19/21 ketorolac 10 mg tablet 10 mg PO Q6H PRN pain 5 days #20 07/10/21 tabs ondansetron 4 mg disintegrating 4 mg PO Q6H PRN nausea and 07/10/21 tablet vomiting #10 tabs tamsulosin 0.4 mg capsule (Flomax) 0.4 mg PO BEDTIME #4 caps 07/10/21 codeine 10 mg-guaifenesin 100 mg/5 10 ml PO Q4-6H PRN cough #120 mL 08/23/21 mL oral liquid (Guaiatussin AC) prednisone 20 mg tablet 60 mg PO DAILY 5 days #15 tabs 08/23/21 Allergies Allergy/AdvReac Type Severity Reaction Status Date / Time ceftriaxone [From Rocephin] Allergy Severe Anaphylaxis Verified 10/11/22 04:51 tramadol Allergy Severe Anaphylaxis Verified 10/11/22 04:51 Review of Systems Review of Systems: Constitutional : No Weight loss, No Fever, No Chills, No Night Sweats, No Fatigue, No Malaise ENT/Mouth : No Hearing loss, No Ear Pain, No Nasal Congestion, No Sinus Pain, No Hoarseness, No sore throat, No Rhinorrhea, No Swallowing Difficulty Eyes: No Eye Pain, No Swelling, No Redness, No Foreign Body, No Discharge, No Vision Changes Cardiovascular : No Chest Pain, No SOB, No Dyspnea on Exertion, No Orthopnea, No Edema, No Palpitations Respiratory : No Cough, No Sputum, No Wheezing, No Smoke Exposure, No Dyspnea Gastrointestinal : No Nausea, No Vomiting, No Diarrhea, No Constipation, No abdominal Pain, No Hematochezia, No Melena Genitourinary : no irregular bleeding, complaining of Dysuria, No Urinary Frequency, No Hematuria, No Urinary Incontinence, No Urgency, complaining of left-sided Flank Pain, No Urinary Flow Changes, No Hesitancy Musculoskeletal : No joint pain, No Myalgias, No Joint Swelling Skin : No Skin Lesions, No rash Neuro : No Weakness, No Numbness, No Paresthesias, No Loss of Consciousness, No Dizziness, No Headache Psych : No Anxiety/Panic, No Depression, No SI/HI/AH/VH, No Social Issues, Heme/Lymph: No Bruising, No Bleeding,No Lymphadenopathy Endocrine : No Polyuria, No Polydipsia, No Temperature Intolerance PMFSH Past Medical History Medical History ADHD Insomnia Morbid obesity Nephrolithiasis PCOS (polycystic ovarian syndrome) PTSD (post-traumatic stress disorder) Surgical History History of ankle surgery History of tonsillectomy and adenoidectomy Hx of cholecystectomy Hx of wisdom tooth extraction Status post placement of bone anchored hearing aid (BAHA) Family History Family History Mother Hypothyroidism Back pain Father No problems noted. Sister No problems noted. Sister No problems noted. Sister No problems noted. Brother No problems noted. Social History Social History Alcohol intake: former Patient Tobacco Use Status: Never used Tobacco Advance Directives: No Advance Directives Information Provided: No Physical Exam Vital Signs: Vital Signs: Last Vital Signs Temp 99.1 F 10/11/22 05:11 Pulse 120 H 10/11/22 05:11 Resp 17 10/11/22 05:11 BP 144/66 H 10/11/22 05:11 Pulse Ox 97 10/11/22 05:11 O2 Del Method Room Air 10/11/22 05:11 BMI result Body Mass Index 72.9 Const: Other: Appearance: Alert. Oriented X3. Seems uncomfortable Eyes: Pupils equal, round and reactive to light. ENT: Pharynx normal. Neck: Normal inspection. Neck supple. No lymph nodes noted. No crepitus CVS: Normal heart rate and rhythm. Pulses normal. Normal S1 and S2 Respiratory: No respiratory distress. Breath sounds normal. No Wheezing. No rales Abdomen: Soft and nontender. No rigidity. No distention. Patient has CVA tenderness on the left Skin: Skin warm and dry. Normal skin color. Normal skin turgor. Extremities: No lower extremity edema. No Lacerations. No Rash Neuro: Oriented X 3. No motor deficit. No sensory deficit. Moving all extremities. No slurred speech. CN 2 through 12 grossly intact Psych: calm, cooperative, crying Medications Administered Discontinued Medications Generic Name Dose Route Start Last Admin Trade Name Freq PRN Reason Stop Dose Admin Ketorolac Tromethamine 60 mg 10/11/22 05:11 10/11/22 05:22 Ketorolac Tromethamine 60 Mg/2 Ml Vial IM 10/11/22 05:12 60 mg ONCE ONE Administration Levofloxacin 500 mg 10/11/22 05:11 10/11/22 05:22 Levofloxacin 500 Mg Tablet PO 10/11/22 05:12 500 mg ONCE ONE Administration Medical Decision Making Medical Decision Making MDM Narrative: -patient's urinalysis positive for UTI, patient given the 1st dose of Levaquin in the emergency room. -CBC and chemistry pending -CT scan pending to rule out ureterolithiasis - -I discussed the CT findings with the patient, there is a 5 x 2 mm stone in the distal left ureter. I also discussed with the patient she has a UTI/pyelonephritis, I considered and recommend admission. Patient states that she prefers to go home and if her symptoms worsen she will return to the emergency room. Patient received p.o. Levaquin. -this before discharge, patient changed her mind, patient would like to be admitted, patient still feeling significant pain -I have contacted Dr. Mcdowell for with the admission. -sign out given to Dr. Jack, pls f/u with CBC, chem and with Dr. mcdowell -Dr. Mcdowell will come by later today, pt is now NPO Differential Diagnosis Differential Diagnoses: The differential diagnosis associated with the presentation includes Lab Data MDM Lab Attestation statement: I reviewed the patient's lab results. Labs: Lab Results 10/11/22 10/11/22 Range/Units 04:38 04:38 Urine Color Dark Yellow Urine Appearance Cloudy Urine pH 6.0 (5.0-9.0) Ur Specific [place] >= 1.030 H (1.005-1.025) Urine Protein 30 (1+) H (Neg-Trace) mg/dL Urine Glucose (UA) Negative (Negative) mg/dL Urine Ketones Negative (Negative) mg/dL Urine Blood Small (1+) H (Negative) Urine Nitrite Positive H (Negative) Ur Leukocyte Esterase Moderate (2+) H (Negative) Urine RBC 6-10 H (0-2) /HPF Urine WBC >50 H (0-5) /HPF Ur Squamous Epith Cells 6-10 (0-2) /HPF Urine Bacteria 4+ (None Seen) Hyaline Casts 0-2 (0-2) /LPF Urine Test NEGATIVE (NEGATIVE) Critical Care Time Critical Care Time Critical Care Time: Yes Total Critical Care Time: 60 Attestation: I have personally provided critical care time. Time includes review of lab data, radiology results, discussion with consultants, and monitoring for potential decompensation. Intervention performed as documented. Discharge Plan Discharge Clinical Impression: Pyelonephritis, Kidney stone Patient Disposition: Admitted As Inpatient
[2022-10-11] MEDS: Ketorolac Tromethamine 60 MG/2 ML VIAL IM (05:22)
[2022-10-11] MEDS: levoFLOXacin 500 MG TABLET PO (05:22)
[2022-10-11 05:23] LABS: UPreg QC Valid YES; Urine Pregnancy NEGATIVE (NEGATIVE)
[2022-10-11 07:24] LABS: Basophils Percent Auto 0.2 % (0-2); Hematocrit 39.5 % (37.0-47.0); Hemoglobin 13.2 g/dl (12.0-16.0); Imm Gran Abs Auto 0.01 X10*3/uL (0.00-0.03); Imm Gran Pct Auto 0.2 % (0.0-0.4); Lymphocytes Absolute Auto 0.4 X10*3/uL (1.2-4.9); Lymphocytes Percent Auto 7.4 % (20-40); MANUAL DIFF FLAG SCAN; Mean Corpuscular HGB Conc 33.4 g/dl (31.0-35.0); Mean Corpuscular Hemoglobin 27.4 pg (27.0-33.0); Mean Platelet Volume 8.9 fL (9.4-12.3); Monocytes Absolute Auto 0.1 X10*3/uL (0.1-1.2); Neutrophils Absolute Auto 4.6 x10*3/uL (2.0-8.3); Neutrophils Percent Auto 91.2 % (45-73); Platelet Count 167 X10*3/uL (160-400); Red Blood Count 4.82 X10*6/uL (4.20-5.50); Red Cell Distribution Width 13.4 % (11.0-16.0); SCAN SMEAR FLAG 1
[2022-10-11 07:39] LABS: Anion Gap 13 (12-20); Blood Urea Nitrogen 13 mg/dL (9-16); Calcium 8.4 mg/dL (8.4-10.2); Carbon Dioxide 22 mmol/L (22-29); Chloride 107 mmol/L (96-108); Creatinine Clr Calc Pharmacy 136.5; Estimated Glomerular Filt Rate > 60; Glucose Random 99 mg/dL (60-115); Sodium 138 mmol/L (135-145)
[2022-10-11 07:42] LABS: SLIDE REVIEW VERIFIED
[2022-10-11] MEDS: HYDROmorphone HCl 1 MG/ML SYRINGE IVPUSH (07:53)
[2022-10-11] MEDS: ondansetron HCL 4 MG/2 ML VIAL IVPUSH (08:06)
[2022-10-11] MEDS: 0.9 % Sodium Chloride 1,000 ML 999 ML IVCONT (08:06)
--- NOTE | 2022-10-11 09:14 | P.CNUR_ITS ---
History of Present Illness Consult details Consult date: 10/11/22 Narrative: consulting complaint left distal ureteric stone 32-year-old female. Two day history left distal flank pain. Associated dysuria, no hematuria. Found to have urinary tract infection in emergency room WBC 5.0, creatinine 0.9, calcium 8.4 Imaging distal left 6 mm stone with mild to moderate hydroureteronephrosis Recommendation for cystoscopy, retrograde, rigid ureteroscopy of stent placement here is a 5 x 2 mm stone in the distal left ureter in the region of the broad ligament associated mild upstream hydroureteronephrosis and perinephric stranding. Review of Systems Constitutional: Constitutional: Reports as per HPI and Reports no additional constitutional complaints Cardiovascular: Cardiovascular: Reports as per HPI and Reports no additional cardiovascular complaints Respiratory: Respiratory: Reports as per HPI and Reports no additional respiratory complaints Gastrointestinal: Gastrointestinal: Reports as per HPI and Reports no additional gastrointestinal complaints Genitourinary: Genitourinary: Reports as per HPI Musculoskeletal: Musculoskeletal: Reports no additional musculoskeletal complaints and Reports as per HPI Neurologic: Reports system reviewed and no additional complaints, except as documented and Reports as per HPI PMFSH Past Medical History Medical History ADHD Insomnia Morbid obesity Nephrolithiasis PCOS (polycystic ovarian syndrome) PTSD (post-traumatic stress disorder) Family History Family History Mother Hypothyroidism Back pain Father No problems noted. Sister No problems noted. Sister No problems noted. Sister No problems noted. Brother No problems noted. Surgical History Surgical History History of ankle surgery History of tonsillectomy and adenoidectomy Hx of cholecystectomy Hx of wisdom tooth extraction Status post placement of bone anchored hearing aid (BAHA) Social History Social History Alcohol intake: former Patient Tobacco Use Status: Never used Tobacco Smoked in Last 30 Days: No Use of substances other than those prescribed or required for medical reasons: No Advance Directives: No Advance Directives Information Provided: No Patient : No Meds Allergies Allergy/AdvReac Type Severity Reaction Status Date / Time ceftriaxone [From Rocephin] Allergy Severe Anaphylaxis Verified 10/11/22 04:51 tramadol Allergy Severe Anaphylaxis Verified 10/11/22 04:51 Active Medications: Current Medications Fentanyl (Fentanyl Citrate/Pf 100 Mcg/2 Ml Vial) 100 mcg IVPUSH Q2H PRN; Protocol PRN Reason: Pain, Severe (Pain Scale 7-10) Home Medications Medication Instructions Recorded Confirmed Last Taken Type clonazepam 0.5 mg tablet 0.25 mg PO BID PRN 08/29/20 12/02/20 Unknown History duloxetine 60 mg capsule,delayed 60 mg PO DAILY 08/29/20 12/02/20 Unknown History release lisdexamfetamine 50 mg capsule 50 mg PO QAM 08/29/20 12/02/20 Unknown History ibuprofen 800 mg tablet 800 mg PO TID PRN 12/02/20 12/02/20 Unknown History lisdexamfetamine 20 mg capsule 20 mg PO QPM 12/02/20 12/02/20 Unknown History Physical Exam Vital Signs: Vital Signs: Last Vital Signs Temp 98.3 F 10/11/22 08:15 Pulse 123 H 10/11/22 08:15 Resp 16 10/11/22 08:15 BP 101/46 L 10/11/22 08:15 Pulse Ox 92 10/11/22 08:15 O2 Del Method Room Air 10/11/22 08:15 BMI result Body Mass Index 72.9 Const: General: cooperative, healthy appearing, comfortable and no acute distress Orientation/consciousness: patient oriented x3 HEENT: Face and sinus: Yes normal facial exam Mouth: moist mucous membranes Neck: Neck: Yes normal visual inspection, Yes full ROM and Yes trachea midline Chest: Chest palpation & inspection: normal inspection of the chest Resp: Effort & Inspection: normal respiratory effort, able to speak in complete sentences and no respiratory distress GI: Inspection: Yes normal to inspection Back/Spine/Pelvis: Cervical Spine: normal cervical lordosis Thoracic/Lumbar Spine: thoracic and lumbar spine normal to inspection Skin: General skin exam: no rashes or lesions noted Neuro: General: patient oriented x3, tone normal and moves all extremities Extrem: General: Yes normal to inspection and Yes capillary refill normal Results Labs 10/11/22 07:18 10/11/22 07:18 Labs: Abnormal lab results 10/11/22 10/11/22 Range/Units 04:38 07:18 MPV 8.9 L (9.4-12.3) fL Neut % (Auto) 91.2 H (45-73) % Lymph % (Auto) 7.4 L (20-40) % [place] % (Auto) 1.0 L (2-11) % Lymph # (Auto) 0.4 L (1.2-4.9) X10*3/uL Ur Specific [place] >= 1.030 H (1.005-1.025) Urine Protein 30 (1+) H (Neg-Trace) mg/dL Urine Blood Small (1+) H (Negative) Urine Nitrite Positive H (Negative) Ur Leukocyte Esterase Moderate (2+) H (Negative) Urine RBC 6-10 H (0-2) /HPF Urine WBC >50 H (0-5) /HPF Short CBC 10/11/22 Range/Units 07:18 WBC 5.0 (4.8-10.8) X10*3/uL Hgb 13.2 (12.0-16.0) g/dl Hct 39.5 (37.0-47.0) % Plt Count 167 D (160-400) X10*3/uL BMP 10/11/22 07:18 Sodium 138 Potassium 4.0 Chloride 107 Carbon Dioxide 22 BUN 13 Creatinine 0.93 Calcium 8.4 D Urine 10/11/22 10/11/22 Range/Units 04:38 04:38 Urine Color Dark Yellow Urine Appearance Cloudy Urine pH 6.0 (5.0-9.0) Ur Specific [place] >= 1.030 H (1.005-1.025) Urine Protein 30 (1+) H (Neg-Trace) mg/dL Urine Glucose (UA) Negative (Negative) mg/dL Urine Test NEGATIVE (NEGATIVE) All other labs normal. Assessment and Plan (1) Pyelonephritis: Status: Acute (2) Kidney stone: Status: Acute Plan Ureteroscopy We discussed the nature of the decision and reasonable alternatives for performing ureteroscopy. Options such as medical therapy were discussed. Interventions include chemical dissolution, ESWL, ureteroscopy with laser lithotripsy and stent placement, PCNL. The relative uncertainties and benefits related to each alternate procedure were adequately discussed. General surgical risks including, but not limited to - pain, bleeding, infection, myocardial infarction, pulmonary embolus, deep vein thrombosis and cerebrovascular accident which may result in further hospitalization were discussed. Full disclosure of the procedure as well as all major risks, benefits and complications were discussed including but not limited to damage to the urethra, bladder and kidney infection, damage to the ureter, stent migration or malposition, scarring to the renal pelvis, remnant stone fragments, subsequent stone passage with need for secondary procedures. The overall secondary procedure rate is approximately 10-15%. The overall clearance rate is approximately 90-95%. Success of the procedure in the short-term does not necessarily guarantee that long-term success will be maintained. Suitable follow up will need to be maintained. The patient showed understanding of discussion and wishes to proceed with - cystoscopy, retrograde, ureteroscopy, possible lithotripsy/stone basketing and stent on the left side Time Spent With Patient Time: Total time managing care of this patient today ____ minutes. Procedures Date of Service Date of Service: 10/11/22
[2022-10-11] MEDS: fentaNYL citrate/PF 100 MCG/2 ML VIAL IVPUSH ×2 (09:25→11:37)
[2022-10-11] MEDS: fentaNYL citrate/PF 100 MCG/2 ML VIAL 50 MCG IVPUSH ×2 (14:15→14:43)
--- NOTE | 2022-10-11 14:45 | HO.ANESPROP2 ---
HPI - Anesthesia Eval Consult details Narrative: 32 F for cystoscopy UTI with left ureteric stone Morbid Obesity , BMI 73 PMFSH Active Problems Active Problems: All Active Problems (Updated 10/11/22 @ 07:05 by Va Quintanilla MD) Morbid obesity due to excess calories (Acute) Morbid obesity with BMI of 70 and over, adult (Acute) Preoperative examination (Acute) BMI 70 and over, adult (Acute) COVID-19 (Acute) Pyelonephritis (Acute) Kidney stone (Acute) Insomnia (Acute) PTSD (post-traumatic stress disorder) (Acute) ADHD (Acute) Morbid obesity (Acute) Past Medical History Medical History ADHD Insomnia Morbid obesity Nephrolithiasis PCOS (polycystic ovarian syndrome) PTSD (post-traumatic stress disorder) Family History Family History Mother Hypothyroidism Back pain Father No problems noted. Sister No problems noted. Sister No problems noted. Sister No problems noted. Brother No problems noted. Family history of problems with anesthesia: No Surgical History Surgical History (Updated 10/11/22 @ 13:39 by Gregoria Sung RN) History of ankle surgery History of surgery on right wrist History of tonsillectomy and adenoidectomy Hx of cholecystectomy Hx of wisdom tooth extraction Status post placement of bone anchored hearing aid (BAHA) History of Problems with Anesthesia: No Social History Social History Alcohol intake: former Patient Tobacco Use Status: Never used Tobacco Smoked in Last 30 Days: No Use of substances other than those prescribed or required for medical reasons: No Are you DNR?: No Advance Directives: No Advance Directives Information Provided: No Patient : No Meds Allergies Allergy/AdvReac Type Severity Reaction Status Date / Time ceftriaxone [From Rocephin] Allergy Severe Anaphylaxis Verified 10/11/22 04:51 tramadol Allergy Severe Anaphylaxis Verified 10/11/22 04:51 Active Medications: Current Medications Fentanyl (Fentanyl Citrate/Pf 100 Mcg/2 Ml Vial) 100 mcg IVPUSH Q2H PRN; Protocol PRN Reason: Pain, Severe (Pain Scale 7-10) Last Admin: 10/11/22 11:37 Dose: 100 mcg Home Medications Medication Instructions Recorded Confirmed Last Taken Type clonazepam 0.5 mg tablet 0.25 mg PO BID PRN 08/29/20 12/02/20 Unknown History duloxetine 60 mg capsule,delayed 60 mg PO DAILY 08/29/20 12/02/20 Unknown History release lisdexamfetamine 50 mg capsule 50 mg PO QAM 08/29/20 12/02/20 Unknown History ibuprofen 800 mg tablet 800 mg PO TID PRN 12/02/20 12/02/20 Unknown History lisdexamfetamine 20 mg capsule 20 mg PO QPM 12/02/20 12/02/20 Unknown History Exam Exam Date and Time: October 11, 2022 1445 Height,Weight and Vital Signs: Height 5 ft 1 in Weight 175 kg Last Vital Signs Temp 98.1 F 10/11/22 13:42 Pulse 101 H 10/11/22 13:42 Resp 20 10/11/22 13:42 BP 117/68 10/11/22 13:42 Pulse Ox 94 10/11/22 13:42 O2 Del Method Room Air 10/11/22 13:42 Pertinent Lab Results Pertinent Lab Results: Laboratory Tests 10/11/22 10/11/22 10/11/22 04:38 04:38 07:18 WBC 5.0 RBC 4.82 Hgb 13.2 Hct 39.5 MCV 82.0 MCH 27.4 MCHC 33.4 RDW 13.4 Plt Count 167 D MPV 8.9 L Immature Gran % (Auto) 0.2 Neut % (Auto) 91.2 H Lymph % (Auto) 7.4 L [place] % (Auto) 1.0 L Eos % (Auto) 0.0 Baso % (Auto) 0.2 Lymph # (Auto) 0.4 L [place] # (Auto) 0.1 Eos # (Auto) 0.0 Baso # (Auto) 0.0 Abs Immat Gran (auto) 0.01 Absolute Neuts (auto) 4.6 Absolute Nucleated RBC 0.000 Nucleated RBC % (auto) 0.0 Smear Tech's Comments VERIFIED Sodium Potassium Chloride Carbon Dioxide Anion Gap BUN Creatinine Estim Creat Clear Calc Estimated GFR Random Glucose Calcium Urine Color Dark Yellow Urine Appearance Cloudy Urine pH 6.0 Ur Specific [place] >= 1.030 H Urine Protein 30 (1+) H Urine Glucose (UA) Negative Urine Ketones Negative Urine Blood Small (1+) H Urine Nitrite Positive H Ur Leukocyte Esterase Moderate (2+) H Urine RBC 6-10 H Urine WBC >50 H Ur Squamous Epith Cells 6-10 Urine Bacteria 4+ Hyaline Casts 0-2 Urine Test NEGATIVE 10/11/22 07:18 WBC RBC Hgb Hct MCV MCH MCHC RDW Plt Count MPV Immature Gran % (Auto) Neut % (Auto) Lymph % (Auto) [place] % (Auto) Eos % (Auto) Baso % (Auto) Lymph # (Auto) [place] # (Auto) Eos # (Auto) Baso # (Auto) Abs Immat Gran (auto) Absolute Neuts (auto) Absolute Nucleated RBC Nucleated RBC % (auto) Smear Tech's Comments Sodium 138 Potassium 4.0 Chloride 107 Carbon Dioxide 22 Anion Gap 13 BUN 13 Creatinine 0.93 Estim Creat Clear Calc 136.5 Estimated GFR > 60 Random Glucose 99 Calcium 8.4 D Urine Color Urine Appearance Urine pH Ur Specific [place] Urine Protein Urine Glucose (UA) Urine Ketones Urine Blood Urine Nitrite Ur Leukocyte Esterase Urine RBC Urine WBC Ur Squamous Epith Cells Urine Bacteria Hyaline Casts Urine Test Airway Mallampati Class: III Neck ROM: Full Denture: Upper Loose/Missing/Broken Teeth: Yes Assessment and Plan Assessment Anesthesia Assessment: Anesthesia Plan Discussed and Chart Reviewed Final Anesthetic Review Family History of Problems with Anesthesia: No History of Problems with Anesthesia: No NPO: Yes ASA Class: III and Emergency Final Preanesthetic Review: Meds/Allgs Chart Reviewed, Consent Obtained/Reviewed and Anes Risks/Benef Reviewed Patient Risk: High Procedure Risk: Intermediate Anesthetic Plan Anesthetic Plan: GA and Agree w/ Assess. and Plan Disposition: Standard PACU
[2022-10-11] MEDS: Lactated Ringers 1,000 ML 50 ML IVCONT (14:48)
--- NOTE | 2022-10-11 15:00 | MHC.SHP ---
Pre-Procedural Eval Section A Date of Service: 10/11/22 The patient is an INPATIENT: Yes Changes since office visit: No Cold of Flu in the past 2 weeks, No New Medical Problems, No Changes in Medication and No Patient answered all questions The History & Physical has been completed within 30 days and I have reviewed it.: Yes Section B Chief Complaint: UTI Details of Present Illness: distal left ureteric stone Allergies: Allergies Allergy/AdvReac Type Severity Reaction Status Date / Time ceftriaxone [From Rocephin] Allergy Severe Anaphylaxis Verified 10/11/22 04:51 tramadol Allergy Severe Anaphylaxis Verified 10/11/22 04:51 Plan Diagnosis/Plan: Unchanged I have reviewed the history and physical and performed a pertinent physical examination on my patient. No changes have occurred unless specified. Time Spent With Patient Time: Total time managing care of this patient today ____ minutes.
--- NOTE | 2022-10-11 16:19 | P.OP_ITS ---
Operative Note Operative Note Date of Service: 10/11/22 Narrative: PreOperative Diagnosis: Distal left ureteric stone Post Operative Diagnosis: distal left ureteric stone Procedure: - cystoscopy, left retrograde - left dilatation of ureteric orifice under fluoroscopy - left ureteroscopy - left stent placement Surgeon: Dr Stephen Rogers Anesthesia: General Indications for procedure: distal left ureteric stone, mild hydroureteronephrosis Procedure: After informed consent was verified the patient was brought to the operating room and placed in a supine position. Anesthesia was administered per protocol. The patient was placed in a modified dorsal lithotomy position and prepped and draped in a sterile fashion. Safety pause time-out and side of surgery were confirmed. Images were available for review. Antibiotic administration confirmed. A 22 Micronesian cystoscope was inserted per urethra. The urethra was without abnormality. The bladder was normal in its entirety. Both ureteric orifices were seen in normal position left ureteric orifice was inflamed. Bladder was emptied.. The Left ureteric orifice was cannulated and a retrograde examination was performed. aspiration was performed from left renal pelvis and sent for culture . post nephrotic drip seen. A Sensor guidewire was placed up to the level of the renal pelvis under fluoroscopy. The rigid cystoscope was removed. A Aurelia dilator was placed over the Sensor guidewire and used to dilate the ureteric orifice under fluoroscopy. The dilator was removed. The semi rigid ureteral scope was placed alongside the Sensor guidewire. - appears stone debris that had been discharged From [facility] contained the stone. A decision was made to place a ureteric stent. Based on the height of the patient a 6 Fr x 22cm stent was used. The string remained on the stent. A 6 [place]ron[place] by 22 cm double-J stent was placed into the renal pelvis and bladder under a combination of fluoroscopy and direct visualization. The symphisis pubis was used as a radiographic marker to release the stent and good coil was seen within the bladder confirming position The bladder was emptied. The patient tolerated the procedure well and was extubated in the operating room. They were transferred in stable condition to the recovery area. Pathology: Drains: Double J stent as described above
[2022-10-11] MEDS: oxyCODONE HCl Immed Release 5 MG TABLET PO ×2 (17:05→22:31)
--- NOTE | 2022-10-11 17:45 | PC.NURSE ---
1733 DR. HOFF NOTIFIED PATIENT SP02 90% ROOM AIR REMAINS HR 100'S. ONOING RIGHT FLANK PAIN. HCP CONCERN PATIENT D/C UNSAFE HAS BEEN UNSTEADY, PASSED OUT IN PAST.
--- NOTE | 2022-10-11 18:25 | PC.NURSE ---
message sent to dr. mukherjee regarding medical consult for patient. alerted patient post op cystoscopy, stent. spo2 90-92% bmi 72, plan admit monitor overnight and medical consult.
[2022-10-11] MEDS: Gentamicin Sulfate/NaCl 80 MG/100 ML PIGGYBACK 100 MG IV (18:26)
[2022-10-11] MEDS: Ketorolac Tromethamine 15 MG/ML VIAL IVPUSH (20:01)
--- NOTE | 2022-10-11 20:22 | PHA.MEDREC ---
Pharmacy Consult ? Medication Reconciliation Pharmacy has completed the medication reconciliation. Spoke with patient in 376. Patient knew all medications. She takes a total of 50 mg duloxetine and 70 mg of vyvanse.
--- NOTE | 2022-10-11 21:36 | P.CONHOSP_ITS ---
History of Present Illness Data of Consult Service Date: 10/11/22 Requesting physician: Stephen Rogers Primary Care Provider: Unknown Physician HPI Reason for consult: low O2 sats, concern for sepsis 32-year-old female with history of PTSD, ADHD, chronic low back pain, and anxiety who is morbidly obese with BMI greater than 72 admitted to Urology for pyelonephritis and nephrolithiasis. she was complaining of left flank pain and CT noted a 5 x 2 mm stone in the left ureter associated with mild upstream hydroureteronephrosis and perinephric stranding. There is no leukocytosis but urinalysis was significant for 2+ leukocytes, positive nitrites, 1+ blood, positive urinary sediment, 4+ bacteria. She was treated empirically with IV Levaquin and She underwent cystoscopy with lithotripsy with stenting of the left ureter earlier today. currently, she is reporting 8/10 left lower quadrant and left flank pain without any associated nausea or vomiting. She is requesting pain medications. She has successfully been weaned from supplemental oxygen. Postoperatively, she was satting between 90-92% but is now maintaining 95% on room air. VSS. Review of Systems Review of Systems: Yes all other systems are reviewed and are negative [facility], [facility] Medical History (Updated 10/11/22 @ 21:42 by LEEANNA Martin) ADHD Insomnia Morbid obesity Nephrolithiasis PCOS (polycystic ovarian syndrome) PTSD (post-traumatic stress disorder) Pyelonephritis Family History Mother Hypothyroidism Back pain Father No problems noted. Sister No problems noted. Sister No problems noted. Sister No problems noted. Brother No problems noted. Surgical History History of ankle surgery History of surgery on right wrist History of tonsillectomy and adenoidectomy Hx of cholecystectomy Hx of wisdom tooth extraction Status post placement of bone anchored hearing aid (BAHA) Social History Alcohol intake: former Patient Tobacco Use Status: Never used Tobacco Smoked in Last 30 Days: No Use of substances other than those prescribed or required for medical reasons: No Are you DNR?: No Advance Directives: No Advance Directives Information Provided: No Patient : No Meds Allergies Allergy/AdvReac Type Severity Reaction Status Date / Time ceftriaxone [From Rocephin] Allergy Severe Anaphylaxis Verified 10/11/22 04:51 tramadol Allergy Severe Anaphylaxis Verified 10/11/22 04:51 Active Medications: Current Medications Clonazepam (Clonazepam 0.5 Mg Tablet) 0.5 mg PO BID PRN PRN Reason: Anxiety Cyanocobalamin (Cyanocobalamin (Vitamin B-12) 1,000 Mcg Tablet) 1,000 mcg PO DAILY [facility] Duloxetine HCl (Duloxetine Hcl 20 Mg Capsule.Dr) 20 mg PO DAILY [facility] Duloxetine HCl (Duloxetine Hcl 30 Mg Capsule.Dr) 30 mg PO DAILY [facility] Fentanyl (Fentanyl Citrate/Pf 100 Mcg/2 Ml Vial) 100 mcg IVPUSH Q2H PRN; Protocol PRN Reason: Pain, Severe (Pain Scale 7-10) Last Admin: 10/11/22 11:37 Dose: 100 mcg Gabapentin (Gabapentin 300 Mg Capsule) 300 mg PO BID@0900,1200 PRN PRN Reason: Pain (Scale Score 1-3) Gabapentin (Gabapentin 300 Mg Capsule) 600 mg PO BEDTIME PRN PRN Reason: Pain (Scale Score 1-3) Lactated Ringer's (Lr) 1,000 mls @ 50 mls/hr IVCONT .Q20H [facility] Last Admin: 10/11/22 14:48 Dose: 50 mls/hr Levofloxacin (Levaquin) 500 mg in 100 mls @ 100 mls/hr IV Q24H [facility] Stop: 10/15/22 16:59 Ketorolac Tromethamine (Ketorolac Tromethamine 15 Mg/Ml Vial) 15 mg IVPUSH Q6H PRN PRN Reason: Pain, Moderate(Pain Scale 4-6) Last Admin: 10/11/22 20:01 Dose: 15 mg Non-Formulary Medication (Lisdexamfetamine [Vyvanse]) 10 mg PO DAILY@1200 [facility] Non-Formulary Medication (Lisdexamfetamine [Vyvanse]) 60 mg PO DAILY [facility] Ondansetron HCl (Ondansetron Odt 8 Mg Tab.Rapdis) 8 mg TRANSLINGU Q8H PRN PRN Reason: nausea/vomiting Oxycodone HCl (Oxycodone Hcl Immed Release 5 Mg Tablet) 5 mg PO Q4H PRN PRN Reason: Breakthrough Pain Last Admin: 10/11/22 17:05 Dose: 5 mg Home Medications Medication Instructions Recorded Confirmed Last Taken Type acetaminophen 325 mg tablet 650 mg PO Q4H PRN Pain 10/11/22 10/11/22 Unknown H istory clonazepam 0.5 mg tablet 0.5 mg PO BID PRN Anxiety 10/11/22 10/11/22 Unknown History cyanocobalamin (vitamin B-12) 1,000 mcg PO DAILY 10/11/22 10/11/22 10/10/22 History 1,000 mcg tablet (Vitamin B-12) duloxetine 20 mg capsule,delayed 20 mg PO DAILY 10/11/22 10/11/22 10/10/22 Histo ry release duloxetine 30 mg capsule,delayed 30 mg PO DAILY 10/11/22 10/11/22 10/10/22 History release gabapentin 300 mg capsule 300 mg PO BID@0900,1200 PRN Pain 10/11/22 10/11/22 Unknown History (Scale Score 1-3) gabapentin 300 mg capsule 600 mg PO BEDTIME PRN Pain (Scale 10/11/22 10/11/22 Unknown History Score 1-3) lisdexamfetamine 10 mg capsule 10 mg PO DAILY@1200 10/11/22 10/11/22 10/10/22 History (Vyvanse) lisdexamfetamine 60 mg capsule 60 mg PO DAILY 10/11/22 10/11/22 10/10/22 History (Vyvanse) ondansetron 8 mg disintegrating 8 mg PO Q8H PRN nausea/vomiting 10/11/22 10/11/22 Unknown History tablet Physical Exam Vital Signs and Narrative: Vital Signs: Last Vital Signs Temp 97.6 F 10/11/22 19:17 Pulse 99 10/11/22 19:17 Resp 18 10/11/22 19:17 BP 116/74 10/11/22 19:17 Pulse Ox 98 10/11/22 19:17 O2 Del Method Nasal Cannula 10/11/22 19:17 O2 Flow Rate 2 10/11/22 19:17 BMI result Body Mass Index 72.9 Constitutional - Awake and Alert, uncomfortable appearing Eyes - PERRLA, EOMI Cardiovascular - S1S2, RRR, No edema Respiratory - Normal lung expansion, Normal respiratory effort, No respiratory distress, CTA bilaterally Gastrointestinal - left lower quadrant tenderness to palpation without guarding or rebound.ND; +BS; Morbidly obese abdomen - Left-sided CVA tenderness Extremities - no calf tenderness bilaterally, no swelling Skin - Warm/Dry Neurological - Alert & oriented x3 Psychological - Appropriate affect Results Labs 10/11/22 07:18 10/11/22 07:18 Labs: Laboratory Results - last 24 hr 10/11/22 10/11/22 10/11/22 04:38 04:38 07:18 MCV 82.0 MCH 27.4 MCHC 33.4 RDW 13.4 Plt Count 167 D MPV 8.9 L Immature Gran % (Auto) 0.2 Neut % (Auto) 91.2 H Lymph % (Auto) 7.4 L [place] % (Auto) 1.0 L Eos % (Auto) 0.0 Baso % (Auto) 0.2 Lymph # (Auto) 0.4 L [place] # (Auto) 0.1 Eos # (Auto) 0.0 Baso # (Auto) 0.0 Abs Immat Gran (auto) 0.01 Absolute Neuts (auto) 4.6 Absolute Nucleated RBC 0.000 Nucleated RBC % (auto) 0.0 Smear Tech's Comments VERIFIED Anion Gap Estim Creat Clear Calc Estimated GFR Random Glucose Calcium Urine Color Dark Yellow Urine Appearance Cloudy Urine pH 6.0 Ur Specific [place] >= 1.030 H Urine Protein 30 (1+) H Urine Glucose (UA) Negative Urine Ketones Negative Urine Blood Small (1+) H Urine Nitrite Positive H Ur Leukocyte Esterase Moderate (2+) H Urine RBC 6-10 H Urine WBC >50 H Ur Squamous Epith Cells 6-10 Urine Bacteria 4+ Hyaline Casts 0-2 Urine Test NEGATIVE 10/11/22 07:18 MCV MCH MCHC RDW Plt Count MPV Immature Gran % (Auto) Neut % (Auto) Lymph % (Auto) [place] % (Auto) Eos % (Auto) Baso % (Auto) Lymph # (Auto) [place] # (Auto) Eos # (Auto) Baso # (Auto) Abs Immat Gran (auto) Absolute Neuts (auto) Absolute Nucleated RBC Nucleated RBC % (auto) Smear Tech's Comments Anion Gap 13 Estim Creat Clear Calc 136.5 Estimated GFR > 60 Random Glucose 99 Calcium 8.4 D Urine Color Urine Appearance Urine pH Ur Specific [place] Urine Protein Urine Glucose (UA) Urine Ketones Urine Blood Urine Nitrite Ur Leukocyte Esterase Urine RBC Urine WBC Ur Squamous Epith Cells Urine Bacteria Hyaline Casts Urine Test Imaging Radiologist's Impressions: Impressions Abdomen/Pelvis CT 10/11/22 05:50 IMPRESSION: * There is a 5 x 2 mm stone in the distal LEFT ureter associated mild upstream hydroureteronephrosis and perinephric stranding. * Nonobstructive 2 mm calculus, left kidney. * Hepatic steatosis. Assessment and Plan (1) Kidney stone: Status: Acute (2) Pyelonephritis: Status: Acute Plan 32-year-old female with history of PTSD, ADHD, chronic low back pain, and anxiety who is morbidly obese with BMI greater than 72 admitted to Urology for p yelonephritis and nephrolithiasis. #Acute pyelonephritis -Treated pre-operatively with IV levaquin. Pt allergic to ceftriaxone. Continue IV levaquin 500mg daily -Tachypnea and tachycardia likely secondary to pain, not sepsis and have resolved. -Plan per urology #Nephrolithiasis -s/p cystoscopy with lithotripsy -Plan per urology - IV ketorolac and oxycodone p.r.n. for pain per Urology # postoperative respiratory insufficiency - appears to have resolved. Maintaining 95% on room air - likely also has degree of obesity related hypoventilation - encourage incentive spirometry # mood disorder /PTSD - continue home meds # morbid obesity- with BMI greater than 72 - weight loss efforts encouraged Will continue following Time Spent With Patient Time: Total time managing care of this patient today ____ minutes.
[2022-10-11] MEDS: Gabapentin 300 MG CAPSULE 600 MG PO (22:31)
[2022-10-11] MEDS: clonazePAM 0.5 MG TABLET PO (22:31)
[2022-10-12] VITALS: BP 111/22; PULSE 73; RESP 19; TEMP 36.4; O2SAT 93
[2022-10-12] MEDS: oxyCODONE HCl Immed Release 5 MG TABLET PO ×5 (03:37→23:39)
[2022-10-12 04:00] VITALS: BP 111/22; PULSE 75; RESP 19; TEMP 36.4; O2SAT 93
[2022-10-12] MEDS: Ketorolac Tromethamine 15 MG/ML VIAL IVPUSH ×4 (04:17→21:57)
[2022-10-12 04:41] VITALS: BMI 72.9
[2022-10-12] MEDS: Cyanocobalamin (Vitamin B-12) 1,000 MCG TABLET 1000 MCG PO (07:22)
[2022-10-12] MEDS: DULoxetine HCl 20 MG CAPSULE.DR PO (07:22)
[2022-10-12] MEDS: DULoxetine HCl 30 MG CAPSULE.DR PO (07:22)
[2022-10-12 07:38] VITALS: BP 110/64; PULSE 96; RESP 20; TEMP 36.6; O2SAT 95
--- NOTE | 2022-10-12 09:03 | MHC.CM.PN ---
UPON ASSESSMENT ATTEMPT, PATIENT REPORTS NAUSEA AND NOT COMFORTABLE TALKING AT THE MOMENT SHE IS AWARE THAT PLAN IS FOR DC TODAY CASE MANAGEMENT NAME AND PLAN WRITTEN ON WHITE BOARD. RN AWARE OF PLAN FOR DC
--- NOTE | 2022-10-12 10:09 | P.PNUR_ITS ---
Subjective Subjective Date of Service: 10/12/22 Interval history: presented yesterday with left flank pain, fever Found to have pyelonephritis with obstructing stone Underwent stent placement Fever has resolved Urinating blood Continue with fluid rehydration Pain medication adjusted Potential discharge this afternoon Physical Exam 2 Vital Signs: Vital Signs: Last Vital Signs Temp 97.9 F 10/12/22 07:38 Pulse 96 10/12/22 07:38 Resp 20 10/12/22 07:38 BP 110/64 10/12/22 07:38 Pulse Ox 95 10/12/22 07:38 O2 Del Method Room Air 10/12/22 07:38 O2 Flow Rate 100 10/12/22 07:38 BMI result Body Mass Index 72.9 Const: General: cooperative, healthy appearing, comfortable and no acute distress Orientation/consciousness: patient oriented x3 HEENT: Face and sinus: Yes normal facial exam Mouth: moist mucous membranes Neck: Neck: Yes normal visual inspection, Yes full ROM and Yes trachea midline Chest: Chest palpation & inspection: normal inspection of the chest Resp: Effort & Inspection: normal respiratory effort, able to speak in complete sentences and no respiratory distress GI: Inspection: Yes normal to inspection Back/Spine/Pelvis: Cervical Spine: normal cervical lordosis Thoracic/Lumbar Spine: thoracic and lumbar spine normal to inspection Skin: General skin exam: no rashes or lesions noted Neuro: General: patient oriented x3, tone normal and moves all extremities Extrem: General: Yes normal to inspection and Yes capillary refill normal Urology Results Labs 10/11/22 07:18 10/11/22 07:18 Progress Note: A&P Assessment and plan (1) Pyelonephritis: Status: Acute Plan continue to follow Time Spent With Patient Time: Total time managing care of this patient today ____ minutes.
[2022-10-12] MEDS: NaPROXEN 500 MG TABLET PO (10:25)
[2022-10-12] MEDS: Lactated Ringers 1,000 ML 50 ML IVCONT (15:09)
[2022-10-12] MEDS: levoFLOXacin/D5W 500 MG/100 ML PIGGYBACK 100 MG IV (15:09)
[2022-10-12 16:02] VITALS: BP 120/71; PULSE 96; RESP 20; TEMP 36.6; O2SAT 100
[2022-10-12] MEDS: oxyBUTYnin chloride ER 5 MG TAB.ER.24 10 MG PO (16:20)
--- NOTE | 2022-10-12 16:36 | HO.POSTANES ---
Post Anesthesia Evaluation Post Anesthesia Evaluation Date of Service: 10/12/22 Vital Signs: Vital Signs Temp Pulse Resp BP Pulse Ox O2 Del Method O2 Flow Rate 10/12/22 16:02 97.9 F 96 20 120/71 100 Room Air 10/12/22 07:38 97.9 F 96 20 110/64 95 Room Air 100 Anesthesia: General Mental Status: Awake Pain Control: Satisfactory Nausea/Vomiting: None Hydration: Adequate Anesthesia-Related Issues: No Anes. Related Issues
[2022-10-12 20:00] VITALS: BP 115/58; PULSE 93; RESP 16; TEMP 35.7; O2SAT 96
[2022-10-12] MEDS: Ondansetron ODT 8 MG TAB.RAPDIS TRANSLINGU (20:48)
[2022-10-12] MEDS: clonazePAM 0.5 MG TABLET PO (20:48)
[2022-10-12 21:58] VITALS: RESP 18
[2022-10-12] MEDS: Gabapentin 300 MG CAPSULE 600 MG PO (23:39)
[2022-10-13 00:41] VITALS: RESP 18
[2022-10-13] MEDS: NaPROXEN 500 MG TABLET PO (03:09)
[2022-10-13 03:21] VITALS: BP 101/59; PULSE 88; RESP 18; TEMP 36.1; O2SAT 95
[2022-10-13 05:00] VITALS: RESP 18
[2022-10-13] MEDS: Ketorolac Tromethamine 15 MG/ML VIAL IVPUSH ×2 (05:34→12:39)
[2022-10-13] MEDS: oxyCODONE HCl Immed Release 5 MG TABLET PO ×2 (06:01→12:39)
[2022-10-13 07:40] VITALS: BP 118/63; PULSE 85; RESP 20; TEMP 36.4; O2SAT 95
[2022-10-13] MEDS: DULoxetine HCl 20 MG CAPSULE.DR PO (07:51)
[2022-10-13] MEDS: Cyanocobalamin (Vitamin B-12) 1,000 MCG TABLET 1000 MCG PO (07:51)
[2022-10-13] MEDS: Lactated Ringers 1,000 ML 50 ML IVCONT (07:51)
[2022-10-13] MEDS: DULoxetine HCl 30 MG CAPSULE.DR PO (07:51)
[2022-10-13] MEDS: Acetaminophen 325 MG TABLET 650 MG PO (09:56)
[2022-10-13] MEDS: Sulfamethox/Trimeth 800/160 TABLET 1 TAB PO (09:56)
--- NOTE | 2022-10-13 10:14 | PC.NURSE ---
Late entry--- BP of 85/[address] Jack while still in the ED, she was asymptomatic. Possibly due to narcotics given. OR also aware.
[2022-10-13 15:35] VITALS: BP 122/68; PULSE 85; RESP 18; TEMP 36; O2SAT 94
--- NOTE | 2022-10-13 15:47 | PM.DS ---
DS: Providers Provider Date of Service: 10/11/22 Date of admission: 10/11/22 18:50 Date of discharge: 10/13/22 Primary care physician: Unknown Physician Admitting clinician: Stephen Rogers Consults: 10/11/22 17:42 Consult to Medicine Stat Consulting Provider: Stephen Rogers Reason for consultation: ow sats, possible sepsis DS: Diagnosis Discharge Diagnosis (1) Pyelonephritis: Status: Acute (2) Morbid obesity with BMI of 70 and over, adult: Status: Acute (3) Ureterolithiasis: Status: Inactive DS: Summary Status at Discharge Functional status at discharge: independent ambulation Overall status at discharge: patient is back to baseline Time Spent with Patient Time attestation: Total time managing care of this patient today ____ minutes. Discharge coordination time: Less than 30 minutes Quality: Safe Use of Opioids Does Pt have an Active Cancer Diagnosis on the Problem List?: No Quality: Stroke Does the patient have a stroke diagnosis?: No Physical Exam Vital Signs: Vital Signs: Last Vital Signs Temp 96.8 F 10/13/22 15:35 Pulse 85 10/13/22 15:35 Resp 18 10/13/22 15:35 BP 122/68 10/13/22 15:35 Pulse Ox 94 10/13/22 15:35 O2 Del Method Room Air 10/13/22 15:35 O2 Flow Rate 100 10/12/22 07:38 BMI result Body Mass Index 72.9 Const: General: cooperative, healthy appearing, comfortable and no acute distress Orientation/consciousness: patient oriented x3 HEENT: Face and sinus: Yes normal facial exam Mouth: moist mucous membranes Neck: Neck: Yes normal visual inspection, Yes full ROM and Yes trachea midline Chest: Chest palpation & inspection: normal inspection of the chest Resp: Effort & Inspection: normal respiratory effort, able to speak in complete sentences and no respiratory distress GI: Inspection: Yes normal to inspection Back/Spine/Pelvis: Cervical Spine: normal cervical lordosis Thoracic/Lumbar Spine: thoracic and lumbar spine normal to inspection Skin: General skin exam: no rashes or lesions noted Neuro: General: patient oriented x3, tone normal and moves all extremities Extrem: General: Yes normal to inspection and Yes capillary refill normal DS: Data Data Completed and Pending Completed studies during hospitalization [Text1]: Renal fluid culture Imaging CT scan - abdomen: Attestation: I personally reviewed and interpreted this imaging study as follows: Radiologist's impression: ITS Impressions Abdomen/Pelvis CT 10/11/22 05:50 IMPRESSION: * There is a 5 x 2 mm stone in the distal LEFT ureter associated mild upstream hydroureteronephrosis and perinephric stranding. * Nonobstructive 2 mm calculus, left kidney. * Hepatic steatosis. Discharge Plan Discharge Anticipated Discharge Date/Time: 10/13/22 15:25 Patient Disposition: Home, Self-Care Discharge Diagnosis: pyelonephritis with obstructing stone Referrals: Stephne Rogers MD [Physician] - 3 Weeks Physician,Unknown J [Primary Care Provider] - None Discharge Medications: New tamsulosin 0.4 mg capsule 0.4 mg PO BEDTIME 14 Days Qty: 14 0RF levofloxacin 500 mg tablet 500 mg PO DAILY Qty: 14 0RF naproxen 500 mg tablet 500 mg PO BID PRN (Reason: pain) 7 Days Qty: 14 0RF hydromorphone [Dilaudid] 2 mg tablet 2 mg PO Q4-6H PRN (Reason: pain) Qty: 10 0RF Rx Instructions: Partial Fill upon patient request. sulfamethoxazole-trimethoprim [Bactrim DS] 800-160 mg tablet 1 tab PO BID 12 Days Qty: 24 0RF phenazopyridine [Pyridium] 100 mg tablet 100 mg PO TID PRN (Reason: Spasm) 4 Days Qty: 12 0RF Continued cyanocobalamin (vitamin B-12) [Vitamin B-12] 1,000 mcg tablet 1,000 mcg PO DAILY ondansetron 8 mg tablet,disintegrating 8 mg PO Q8H PRN (Reason: nausea/vomiting) gabapentin 300 mg capsule 300 mg PO BID@0900,1200 PRN (Reason: Pain (Scale Score 1-3)) gabapentin 300 mg capsule 600 mg PO BEDTIME PRN (Reason: Pain (Scale Score 1-3)) duloxetine 20 mg capsule,delayed release(DR/EC) 20 mg PO DAILY Rx Instructions: 50 mg daily duloxetine 30 mg capsule,delayed release(DR/EC) 30 mg PO DAILY Rx Instructions: tdd = 50 mg daily Vyvanse 60 mg capsule 60 mg PO DAILY Rx Instructions: tdd = 60 mg Vyvanse 10 mg capsule 10 mg PO DAILY@1200 Rx Instructions: tdd = 60 mg clonazepam 0.5 mg tablet 0.5 mg PO BID PRN (Reason: Anxiety) acetaminophen 325 mg Tablet 650 mg PO Q4H PRN (Reason: Pain) Discharge Orders: Discharge Order (Routine); Ordered 10/11/22 Ordered By: Stephen Rogers Diet: Advance to usual diet Activity on Discharge: As tolerated Care Plan Goals: pyelonephritis Health Concerns: pyelonephritis Plan of Treatment: pyelonephritis Assessment: pyelonephritis Patient Instructions: Ureteroscopy (DC)
== END 2022-10-13 17:48 | disposition home or self-care (01) | DRG 463 ==
LOC: HO.ED 09:45 → HO.SSS 13:00 → HO.S3 18:52
PROVIDERS: Admitting Provider Urology; Emergency Provider Emergency Medicine; Visit Provider Urology
PROC: 0T778DZ Dilation of Left Ureter with Intraluminal Device, Via Natural or Artificial Opening Endoscopic (ICD-10-PCS; principal; 2022-10-11 14:30)
DX: N13.6 Pyonephrosis (principal); E66.2 Morbid (severe) obesity with alveolar hypoventilation; R06.89 Other abnormalities of breathing; Z68.45 Body mass index [BMI] 70 or greater, adult; E28.2 Polycystic ovarian syndrome; F43.10 Post-traumatic stress disorder, unspecified; F90.9 Attention-deficit hyperactivity disorder, unspecified type; Z96.29 Presence of other otological and audiological implants; Z88.1 Allergy status to other antibiotic agents; Z88.5 Allergy status to narcotic agent; Z79.899 Other long term (current) drug therapy
CPT/HCPCS: 36415; 74176; 80048; 81001; 81025; 85025; 87070; 87086; 87088; 87186; 87205; 99285; C1758; C1769; C2617; J0131; J1170; J1580; J1885; J1956; J2370; J2405; J2765; J3010; Q9967

== ENCOUNTER → 2022-11-09 14:41 | Outpatient (BNVA) | payer OTHER, SELFPAY | PROVIDERS: PCP Internal Medicine; Visit Provider Urology | DX: Z46.6 Encounter for fitting and adjustment of urinary device (principal) | CPT/HCPCS: 52310 ==

== ENCOUNTER 2023-03-09 08:08 | Outpatient (AMB) | payer OTHER, SELFPAY ==
--- NOTE | 2023-03-09 11:23 | MHC.OFFVISWM ---
Intake VS Expanded 03/09/23 11:39 Height 5 ft 1 in Weight 385 lb BMI 72.7 Intake Visit Reasons: TV Re - Establishing SWL Allergies tramadol Allergy (Severe, Verified 03/09/23 11:24) Anaphylaxis Medication List - Last Reconciled 03/09/23 by Reid Mason MD acetaminophen 650 mg PO Q4H PRN clonazepam 0.5 mg PO BID PRN cyanocobalamin (vitamin B-12) (Vitamin B-12) 1,000 mcg PO DAILY duloxetine 30 mg PO DAILY duloxetine 20 mg PO DAILY gabapentin 300 mg PO BID@0900,1200 PRN gabapentin 600 mg PO BEDTIME PRN lisdexamfetamine (Vyvanse) 10 mg PO DAILY@1200 lisdexamfetamine (Vyvanse) 60 mg PO DAILY HPI TV Re - Establishing SWL HPI Details Start time: 11.15am, End time: 12.06pm ?I spent 46 minutes speaking with the patient on the phone plus an additional 5 minutes reviewing and updating records for a total of 51 minutes HPI Comments History of Present Illness Details Previous weight loss: keto diet, self diet, exercise Wakes up: 6am, Sleeps: 10pm Breakfast: skips Lunch: skips Dinner: 6.30pm (chicken, rice and vegetables, pizza) Snacks: 10am (banana), 12pm (cheese and crackers), 3pm (apple, peanut butter, popcorn), 7-8pm occasionally (chips or ice cream) Exercise: yoga Fluids: Coffee 1 cup/d (plain), Tea: 1-2 cups/wk (plain), juice 1-2/wk (orange juice), soda: Gingerale 1-2/wk, Alcohol: none PFSH Medical History (Updated 10/11/22 @ 21:42 by LEEANNA Martin) Pyelonephritis PCOS (polycystic ovarian syndrome) Insomnia Nephrolithiasis PTSD (post-traumatic stress disorder) ADHD Morbid obesity Surgical History History of surgery on right wrist Status post placement of bone anchored hearing aid (BAHA) History of ankle surgery Hx of wisdom tooth extraction Hx of cholecystectomy History of tonsillectomy and adenoidectomy Family History Mother Hypothyroidism Back pain Father No problems noted. Sister No problems noted. Sister No problems noted. Sister No problems noted. Brother No problems noted. Social History Household Members: Spouse Housing: House Do you presently have visiting nurse or other home services: No Alcohol intake: former Patient Tobacco Use Status: Never used Tobacco service: No Current occupational status: unemployed Assessment & Plan Assessment & Plan (1) Morbid obesity: Code(s): E66.01 - Morbid (severe) obesity due to excess calories Plan: 1.? Plan for lap sleeve gastrectomy. If diaphragmatic or ventral hernias are present at time of surgery, these will be repaired laparoscopically as well. Risks and complications were discussed in detail including possible conversion to an open procedure, anastomotic leak, bleeding requiring transfusion, small bowel obstruction, , DVT and pulmonary embolism, cardiac, or pulmonary complications, as terminal make up operator complications such as anastomotic ulcer, insufficient weight loss and vitamin deficiencies. I emphasized the importance of close follow-up, adherence to instructions and good communication. 2. Nutritional counseling. Start with 2 Isopure INFUSIONS protein (buy at [employer], [facility]) shakes (ONE scoop EACH in 8oz water each) at 7am-9am and 10am-12pm, 2 protein bars (Zone Perfect protein bars, buy at [employer], ?[employer], [employer], or [employer]) at 1pm-3pm and 4pm-6pm, dinner at 7pm (12 forks of protein and 12 forks of salad/vegetables). If hungry after dinner, you can do one more Zone Perfect bar bar at 8pm-10pm. So you do 2 protein shakes, 2-3 protein bars and one meal per day. Meal to include lean meat (beef, fish, pork, turkey, chicken), or polish yogurt, or egg whites, or beans with a salad with olive oil and fruits (berries, pears, apples, kiwi). Avoid salt, breads, potatoes, rice, pasta, desserts. 3. Each shake would be drunk slowly, like coffee in a period of 2 hours. 4. Cut each bar in 4 pieces and eat each piece in 30min ?to make each bar last 2 hours. 5. I emphasized the importance of measuring accurately the food portion and measure it when serving the food in plate 6. The meal portions include 12 full-size forks of meat and 12 full-size forks of salad. You always eat the meat portion but you can replace up to 6 forks for salad/vegetables with rice, potatoes or pasta, or a fruit ?if you like. The less you do it the better weight loss will be. 7. One full-size fork is what it can be scooped on the fork without falling aside and not what can be bit with the fork. Use regular forks like those you find in a typical restaurant. 8.? Please come at the office for weight check tomorrow or Tuesday and send me the weight measurements. Please also purchase a body composition scale at home as soon as possible and then send me weight measurements once a week. Always include your diet and exercise plan. 9. Start walking outside daily, tracking calories with a goal of 300 calories per day, daily. Goal is to burn 2000 calories per week on exercise, which means either 300 calories daily, or 400 calories 5 days per week, or 500 calories 4 days per week, or 650 calories 3 days per week. 10. Alternatively purchase a stationary bike, elliptical or treadmill at home that can track calories. Let me know if you do so I can give you an exercise plan. 11.?It is important of avoiding and for at least 18 months postoperatively and has been discussed at the infosession. 12. Goal is to lose at least 1.5-2lbs per week 13. Goal to lose a minimum of 10% of your weight before surgery, which is about 36lbs. Ultimate weight goal: 330lbs or less before surgery 14. Please follow the diet plan exactly without any change. If you don't like something about the plan or you feel hungry you need to communicate with me so I can help you revise the plan. You should not change the plan yourself. Orders: Orders Insulin Today E66.01 - Morbid (severe) obesity due to excess calories Complete Blood Count Auto Diff Today E66.01 - Morbid (severe) obesity due to excess calories Comprehensive Met. Panel Today E66.01 - Morbid (severe) obesity due to excess calories Vitamin A Today E66.01 - Morbid (severe) obesity due to excess calories H Pylori Breath Test Today E66.01 - Morbid (severe) obesity due to excess calories Vitamin D 25-OH Total Today E66.01 - Morbid (severe) obesity due to excess calories US abdomen comp w elastography Today E66.01 - Morbid (severe) obesity due to excess calories XR chest 2V Today E66.01 - Morbid (severe) obesity due to excess calories Lipid Panel Today E66.01 - Morbid (severe) obesity due to excess calories IRON PROFILE Today E66.01 - Morbid (severe) obesity due to excess calories Vitamin B12 and Folate Today E66.01 - Morbid (severe) obesity due to excess calories Zinc Today E66.01 - Morbid (severe) obesity due to excess calories Vitamin B1 Today E66.01 - Morbid (severe) obesity due to excess calories C Reactive Protein Today E66.01 - Morbid (severe) obesity due to excess calories Ferritin Today E66.01 - Morbid (severe) obesity due to excess calories PTHI Today E66.01 - Morbid (severe) obesity due to excess calories TSH reflex Free T4 Today E66.01 - Morbid (severe) obesity due to excess calories Hemoglobin A1c Today E66.01 - Morbid (severe) obesity due to excess calories ECG 12 lead EKG Today E66.01 - Morbid (severe) obesity due to excess calories FL upper GI w air Today E66.01 - Morbid (severe) obesity due to excess calories Referrals Behavioral Health Referral E66.01 - Morbid (severe) obesity due to excess calories Nutrition/Dietitian Referral E66.01 - Morbid (severe) obesity due to excess calories Telehealth Telehealth Location of provider rendering services: practice address Location of patient: address on file Patient Identification confirmed using: Name, : Yes Telehealth method: voice only Patient verbally consented to treatment: Yes Patient verbally consented to billing insurance company: Yes Patient informed of any privacy concerns related to visit: Yes Minutes spent on Phone/Video with Pt.: 51 Coding Level of Care Code Tele [facility] Pt Level 4 (63431) Diagnoses Morbid obesity E66.01 Time Spent (min) 51
[2023-03-09 11:39] VITALS: BMI 72.7
== END 2023-03-09 12:07 | disposition home or self-care (01) ==
PROVIDERS: PCP Internal Medicine; Visit Provider Surgery
DX: E66.01 Morbid (severe) obesity due to excess calories (principal); Z68.45 Body mass index [BMI] 70 or greater, adult
CPT/HCPCS: 99215